=== PATIENT | male | born 1945 | race Caucasian/White ===

== ENCOUNTER → 2016-05-10 | Outpatient (CLI) | payer OTHER ==
[2016-05-10 09:30] LABS: Appearance,Urine Clear (Clear); Bilirubin,Urine Negative (Negative); Glucose,Urine (UA) Negative (Negative); Ketones,Urine Negative (Negative); Leukocyte Esterase,Urine Negative (Negative); Nitrite,Urine Negative (Negative); Protein,Urine Negative (Negative); Specific Gravity,Urine 1.013 (1.001-1.035); UA Billing (MACRO vs. MICRO) CHEM; Urobilinogen,Urine <2.0 mg/dL (<2.0)
[2016-05-10 09:31] LABS: Basophils # (A) 0.1 k/uL (0-0.2); Basophils % (A) 1 %; CH 30.3; CHCM 33.5; Eosinophils # (A) 0.1 k/uL (0-0.7); Eosinophils % (A) 2 %; HCT 40.4 % (39.0-53.0); HDW 2.62; Luc # (Auto) 0.13; Luc % (Auto) 2; Lymphocytes # (A) 1.6 k/uL (1.0-4.8); Lymphocytes % (A) 23 %; MCH 29.3 pg (25.0-35.0); MCHC 32.2 g/dL (31.0-37.0); MCV 90.9 fL (80.0-100.0); Mean Platelet Volume 7.6; Monocytes # (A) 0.4 k/uL (0-1.0); Monocytes % (A) 6 %; Neutrophils # (A) 4.6 k/uL (1.3-7.7); Neutrophils % (A) 66 %; RBC 4.44 m/uL (4.30-5.90); RDW 13.1 % (11.5-15.5)
[2016-05-10 10:51] LABS: Anion Gap 9 mmol/L; Blood Urea Nitrogen 16 mg/dL (9-20); Calcium 9.5 mg/dL (8.4-10.2); Carbon Dioxide 28 mmol/L (22-30); Chloride 106 mmol/L (98-107); Glucose 96 mg/dL (74-99); Iron 105 ug/dL (49-181); Non-African American GFR(MDRD) 50 (>60 ml/min/1.73 sqM); Potassium 5.2 mmol/L (3.5-5.1); Sodium 143 mmol/L (137-145)
[2016-05-10 11:00] LABS: % Iron Saturation 32.4 % (20-50); Total Iron Binding Capacity 324 ug/dL (261-462)
== END | disposition home or self-care (01) ==
LOC: LABWHC1 08:50
PROVIDERS: ATTEND Nurse Practitioner Family
DX: N18.3 Chronic kidney disease, stage 3 (moderate) (principal); N25.81 Secondary hyperparathyroidism of renal origin; D50.9 Iron deficiency anemia, unspecified; N39.0 Urinary tract infection, site not specified
CPT/HCPCS: 36415; 80048; 81003; 82306; 82728; 83540; 83550; 83970; 85025

== ENCOUNTER → 2016-11-09 | Outpatient (CLI) | payer OTHER ==
[2016-11-09 08:35] LABS: Basophils % (A) 1 %; CH 31.4; Eosinophils # (A) 0.2 k/uL (0-0.7); Eosinophils % (A) 2 %; HCT 39.9 % (39.0-53.0); HGB 13.4 gm/dL (13.0-17.5); Luc % (Auto) 3; Lymphocytes % (A) 29 %; MCH 31.1 pg (25.0-35.0); MCHC 33.6 g/dL (31.0-37.0); MCV 92.7 fL (80.0-100.0); Mean Platelet Volume 7.3; Monocytes # (A) 0.5 k/uL (0-1.0); Monocytes % (A) 6 %; Neutrophils # (A) 4.2 k/uL (1.3-7.7); Neutrophils % (A) 59 %; RBC 4.31 m/uL (4.30-5.90); RDW 14.3 % (11.5-15.5); WBC 7.1 k/uL (3.8-10.6); WBC (Perox) 7.15
[2016-11-09 08:36] LABS: Appearance,Urine Clear (Clear); Bilirubin,Urine Negative (Negative); Glucose,Urine (UA) Negative (Negative); Ketones,Urine Negative (Negative); Leukocyte Esterase,Urine Negative (Negative); Nitrite,Urine Negative (Negative); Protein,Urine Negative (Negative); Specific Gravity,Urine 1.018 (1.001-1.035); UA Billing (MACRO vs. MICRO) CHEM; Urobilinogen,Urine <2.0 mg/dL (<2.0)
[2016-11-09 12:23] LABS: Anion Gap 12 mmol/L; Blood Urea Nitrogen 22 mg/dL (9-20); Calcium 9.4 mg/dL (8.4-10.2); Carbon Dioxide 26 mmol/L (22-30); Chloride 104 mmol/L (98-107); Glucose 95 mg/dL (74-99); Iron 61 ug/dL (49-181); Non-African American GFR(MDRD) 50 (>60 ml/min/1.73 sqM); Potassium 4.5 mmol/L (3.5-5.1); Sodium 142 mmol/L (137-145)
[2016-11-09 12:33] LABS: Total Iron Binding Capacity 325 ug/dL (261-462)
== END | disposition home or self-care (01) ==
LOC: LABWHC1 08:12
PROVIDERS: ATTEND Nurse Practitioner Family
DX: N18.3 Chronic kidney disease, stage 3 (moderate) (principal); D50.9 Iron deficiency anemia, unspecified; N25.81 Secondary hyperparathyroidism of renal origin; N39.0 Urinary tract infection, site not specified
CPT/HCPCS: 36415; 80048; 81003; 82306; 82728; 83540; 83550; 83970; 85025

== ENCOUNTER → 2016-11-26 | Outpatient (CLI) | payer OTHER ==
--- NOTE | 2016-11-27 07:09 | US ---
EXAMINATION TYPE: US kidneys/renal and bladder DATE OF EXAM: 11/26/2016 COMPARISON: 06/29/2014 CLINICAL HISTORY: N18.3 chronic disease stage 3. EXAM MEASUREMENTS: Right Kidney: 13.6 x 6.2 x 5.1 cm Left Kidney: nephrectomy Right Kidney: Compensatory hypertrophy. Preserved cortical medullary differentiation. No evidence of nephrolithiasis or hydronephrosis. No renal masses are seen. Left Kidney: nephrectomy Bladder: patient emptied bladder before test The urinary bladder is anechoic but incompletely distended. IMPRESSION: Compensatory hypertrophy of the otherwise unremarkable appearing right kidney. Surgical absence of th e left kidney.
== END | disposition home or self-care (01) ==
LOC: RADUSWWP 16:04
PROVIDERS: ATTEND Internal Medicine Nephrology
DX: N28.81 Hypertrophy of kidney (principal); Z90.5 Acquired absence of kidney; N18.3 Chronic kidney disease, stage 3 (moderate)
CPT/HCPCS: 76770

== ENCOUNTER → 2017-08-08 | Outpatient (CLI) | payer OTHER ==
[2017-08-08 09:16] LABS: Basophils # (A) 0.1 k/uL (0-0.2); Basophils % (A) 1 %; Eosinophils # (A) 0.1 k/uL (0-0.7); Eosinophils % (A) 2 %; HGB 13.1 gm/dL (13.0-17.5); Lymphocytes # (A) 1.8 k/uL (1.0-4.8); Lymphocytes % (A) 24 %; MCH 29.6 pg (25.0-35.0); MCHC 33.7 g/dL (31.0-37.0); MCV 87.6 fL (80.0-100.0); Mean Platelet Volume 6.6; Monocytes # (A) 0.4 k/uL (0-1.0); Monocytes % (A) 6 %; Neutrophils # (A) 4.7 k/uL (1.3-7.7); Neutrophils % (A) 65 %; Platelet Count 286 k/uL (150-450); RBC 4.45 m/uL (4.30-5.90); WBC 7.2 k/uL (3.8-10.6)
[2017-08-08 09:27] LABS: Calcium 9.2 mg/dL (8.4-10.2); Phosphorus 3.2 mg/dL (2.5-4.5); Potassium 4.8 mmol/L (3.5-5.1); Uric Acid 4.7 mg/dL (3.5-8.5)
[2017-08-08 09:32] LABS: Appearance,Urine Clear (Clear); Bilirubin,Urine Negative (Negative); Blood,Urine Negative (Negative); Color,Urine Yellow; Glucose,Urine (UA) Negative (Negative); Ketones,Urine Negative (Negative); Leukocyte Esterase,Urine Negative (Negative); Nitrite,Urine Negative (Negative); PH, Urine 5.5 (5.0-8.0); Protein,Urine Trace (Negative); Specific Gravity,Urine 1.021 (1.001-1.035); Urobilinogen,Urine <2.0 mg/dL (<2.0)
[2017-08-08 15:15] LABS: Parathyroid Hormone Intact 65.3 pg/mL (14.0-72.0)
[2017-08-08 16:26] LABS: Iron Saturation 28.29 (15.00-50.00)
[2017-08-08 16:34] LABS: Vitamin D 25 Hydroxy 39.6 ng/mL (30.0-100.0)
== END | disposition home or self-care (01) ==
LOC: LABWHC1 08:38
PROVIDERS: ATTEND Nurse Practitioner Family
DX: D50.9 Iron deficiency anemia, unspecified (principal); N25.81 Secondary hyperparathyroidism of renal origin; N18.3 Chronic kidney disease, stage 3 (moderate); N39.0 Urinary tract infection, site not specified; M10.9 Gout, unspecified
CPT/HCPCS: 36415; 80048; 81003; 82306; 82728; 83540; 83550; 83735; 83970; 84100; 84550; 85025

== ENCOUNTER → 2017-08-22 | Outpatient (CLI) | payer OTHER ==
--- NOTE | 2017-08-22 15:56 | US ---
EXAMINATION TYPE: US kidneys/renal and bladder DATE OF EXAM: 08/22/2017 COMPARISON: US 11/24/[address] CLINICAL HISTORY: N18.3 CKD. CKD, left nephrectomy in 2013 EXAM MEASUREMENTS: Right Kidney: 13.6 x 5.4 x 6.1 cm Right Kidney: Compensatory hypertrophy. Anechoic small cyst medially= 1.6 x 1.4 x 1.7 cm Left Kidney: Surgically absent Bladder: wnl Bilateral Jets seen: Only right jet visualized due to surgically absent left kidney No nephrolithiasis is seen. No masses are identified. The urinary bladder is anechoic. IMPRESSION: Compensatory hypertrophy of the right kidney with 1.7 cm anechoic renal cysts. No evidence of hydrone phrosis or nephrolithiasis. Surgical absence of the left kidney.
== END | disposition home or self-care (01) ==
LOC: RADUSWWP 14:45
PROVIDERS: ATTEND Internal Medicine Nephrology
DX: N28.81 Hypertrophy of kidney (principal); N28.1 Cyst of kidney, acquired; N18.3 Chronic kidney disease, stage 3 (moderate)
CPT/HCPCS: 76770

== ENCOUNTER → 2017-10-17 | Outpatient (CLI) | payer OTHER ==
--- NOTE | 2017-10-17 09:00 | US ---
EXAMINATION TYPE: US prostate transrectal DATE OF EXAM: 10/17/2017 COMPARISON: NONE CLINICAL HISTORY: R97.20 Elevated PSA. Elevated PSA This examination was performed using the transrectal probe. EXAM MEASUREMENTS: Gland Size: 5.6 x 2.6 x 5.1cm Volume: 39.0cm Predicted PSA: 4.68 Actual PSA (if available):not available Heterogeneous gland. Central zone calcifications. Hypoechoic area appearing to be within the peripher al zone zone is overall similar to the prior exam measuring 0.6 x 0.6 x 0.5cm IMPRESSION: Solitary 6 mm hypoechoic lesion within the left prostatic peripheral zone towards the apex appears si milar to the prior exam. For further evaluation. Considerations could be given for prostate MRI, ultr asound-guided biopsy or surveillance. Other changes of benign prostatic hyperplasia are noted.
[2017-10-17 09:08] LABS: HCT 39.4 % (39.0-53.0); HGB 13.3 gm/dL (13.0-17.5); MCH 30.5 pg (25.0-35.0); MCHC 33.8 g/dL (31.0-37.0); MCV 90.1 fL (80.0-100.0); Platelet Count 301 k/uL (150-450); RBC 4.38 m/uL (4.30-5.90); RDW 13.3 % (11.5-15.5); WBC 7.3 k/uL (3.8-10.6)
[2017-10-17 09:21] LABS: Albumin 4.2 g/dL (3.5-5.0); Bilirubin, Delta 0.2 mg/dL (0.0-0.2); Bilirubin,Unconjugated 0.4 mg/dL (0.0-1.1); Calcium 9.4 mg/dL (8.4-10.2); Potassium 4.8 mmol/L (3.5-5.1); Total Bilirubin 0.6 mg/dL (0.2-1.3); Total Protein 6.9 g/dL (6.3-8.2)
--- NOTE | 2017-10-17 09:24 | XR ---
EXAMINATION TYPE: XR chest 2V DATE OF EXAM: 10/17/2017 COMPARISON: 03/21/2017 HISTORY: Evaluate pulmonary nodule seen at the left lung base. History renal cell carcinoma. TECHNIQUE: Frontal and lateral views of the chest are obtained. FINDINGS: There is no focal air space opacity, pleural effusion, or pneumothorax seen. The previousl y seen nodular density at the left lung base represents a nipple shadow as nipple markers are placed. No radiographic nodule is identified although spatial resolution is improved with CT and evaluation of subcentimeter pulmonary nodules is better on CT. The cardiac silhouette size is within normal limi ts. The osseous structures are intact. Slight right hemidiaphragm elevation is unchanged from the p rior. IMPRESSION: No acute cardiopulmonary process. The previously seen left basilar nodular density repre sents a nipple shadow with nipple markers placed on this examination.
== END | disposition home or self-care (01) ==
LOC: RADUSMAIN 07:47
PROVIDERS: ATTEND Urology
DX: C64.2 Malignant neoplasm of left kidney, except renal pelvis (principal); N40.0 Benign prostatic hyperplasia without lower urinary tract symptoms; N42.89 Other specified disorders of prostate; R97.20 Elevated prostate specific antigen [PSA]
CPT/HCPCS: 36415; 71046; 76872; 80048; 80076; 84153; 84154; 85027

== ENCOUNTER → 2017-10-21 | Outpatient (CLI) | payer OTHER | END | disposition home or self-care (01) | LOC: LABWHC1 16:51 | PROVIDERS: ATTEND Family Medicine | DX: M79.604 Pain in right leg (principal) | CPT/HCPCS: 36415; 85379 ==

== ENCOUNTER → 2018-05-09 | Outpatient (CLI) | payer OTHER ==
[2018-05-09 09:41] LABS: Basophils % (A) 1 %; Eosinophils # (A) 0.1 k/uL (0-0.7); Eosinophils % (A) 2 %; HCT 40.1 % (39.0-53.0); HGB 13.1 gm/dL (13.0-17.5); Lymphocytes # (A) 0.7 k/uL (1.0-4.8); Lymphocytes % (A) 16 %; MCH 29.8 pg (25.0-35.0); MCHC 32.6 g/dL (31.0-37.0); MCV 91.3 fL (80.0-100.0); Mean Platelet Volume 7.5; Monocytes # (A) 0.3 k/uL (0-1.0); Monocytes % (A) 7 %; Neutrophils # (A) 3.1 k/uL (1.3-7.7); Neutrophils % (A) 72 %; Platelet Count 246 k/uL (150-450); RBC 4.39 m/uL (4.30-5.90); RDW 13.2 % (11.5-15.5); WBC 4.3 k/uL (3.8-10.6)
[2018-05-09 10:00] LABS: Appearance,Urine Clear (Clear); Bilirubin,Urine Negative (Negative); Blood,Urine Negative (Negative); Color,Urine Yellow; Glucose,Urine (UA) Negative (Negative); Ketones,Urine Negative (Negative); Leukocyte Esterase,Urine Negative (Negative); Nitrite,Urine Negative (Negative); Protein,Urine Trace (Negative); Specific Gravity,Urine 1.021 (1.001-1.035); Urobilinogen,Urine <2.0 mg/dL (<2.0)
[2018-05-09 16:18] LABS: Parathyroid Hormone Intact 57.6 pg/mL (14.0-72.0)
[2018-05-09 16:32] LABS: Iron Saturation 26.44 (15.00-50.00)
[2018-05-09 16:38] LABS: Anion Gap 7.4 mmol/L (4.00-12.00); Calcium 9.4 mg/dL (8.7-10.3); Carbon Dioxide 28.6 mmol/L (21.6-31.8); Magnesium 1.9 mg/dL (1.5-2.4); Phosphorus 3.2 mg/dL (2.4-5.1); Potassium 4.8 mmol/L (3.5-5.5); Uric Acid 4.8 mg/dL (3.7-8.7)
[2018-05-09 16:39] LABS: Vitamin D 25 Hydroxy 39.6 ng/mL (30.0-100.0)
[2018-05-09 17:04] LABS: Total Protein,Urine Random 21.1 mg/dL (0.0-13.5)
[2018-05-09 17:05] LABS: Creatinine,Urine Random 181.2 mg/dL
[2018-05-11 14:56] LABS: C-ANCA <1:20 Titer (<1:20); P-ANCA <1:20 Titer (<1:20)
== END | disposition home or self-care (01) ==
LOC: LABWHC1 09:11
PROVIDERS: ATTEND Nurse Practitioner Family
DX: N39.0 Urinary tract infection, site not specified (principal); D63.1 Anemia in chronic kidney disease; N18.3 Chronic kidney disease, stage 3 (moderate); E55.9 Vitamin D deficiency, unspecified; D50.9 Iron deficiency anemia, unspecified; N25.81 Secondary hyperparathyroidism of renal origin; R80.9 Proteinuria, unspecified; M10.9 Gout, unspecified
CPT/HCPCS: 36415; 80048; 81003; 82306; 82570; 82728; 83516; 83540; 83550; 83735; 83883; 83970; 84100; 84156; 84166; 84550; 85025; 86038; 86160; 86162; 86225; 86255; 86334

== ENCOUNTER → 2018-06-02 | Outpatient (CLI) | payer OTHER ==
--- NOTE | 2018-06-03 07:49 | US ---
EXAMINATION TYPE: US kidneys/renal and bladder DATE OF EXAM: 06/02/2018 COMPARISON: 08/22/2017 CLINICAL HISTORY: N18.3 chronic kidney disease stage 3. CKD, Hx of left renal cancer with surgical re moval x 1 year ago. No pain. EXAM MEASUREMENTS: Right Kidney: 13.1 x 5.6 x 4.7 cm Right Kidney: Medial anechoic lesion seen at hilum - 1.8 x 1.4 cm Left Kidney: History of left nephrectomy Bladder: wnl, distended Right jet seen IMPRESSION: Post left nephrectomy.
== END | disposition home or self-care (01) ==
LOC: RADUSWWP 15:58
PROVIDERS: ATTEND Internal Medicine Nephrology
DX: N18.3 Chronic kidney disease, stage 3 (moderate) (principal); Z90.5 Acquired absence of kidney
CPT/HCPCS: 76770

== ENCOUNTER → 2018-06-27 | Outpatient (CLI) | payer OTHER | END | disposition home or self-care (01) | LOC: LABWHC1 08:43 | PROVIDERS: ATTEND Radiology Radiation Oncology | DX: C61 Malignant neoplasm of prostate (principal) | CPT/HCPCS: 36415; 84153 ==

== ENCOUNTER → 2018-09-03 | Outpatient (CLI) | payer OTHER ==
[2018-09-03 15:54] LABS: HCT 37.9 % (39.0-53.0); HGB 12.9 gm/dL (13.0-17.5); MCH 30.3 pg (25.0-35.0); MCV 89.2 fL (80.0-100.0); Mean Platelet Volume 7.5; Platelet Count 237 k/uL (150-450); RBC 4.25 m/uL (4.30-5.90); RDW 13.5 % (11.5-15.5); WBC 7.4 k/uL (3.8-10.6)
[2018-09-03 16:09] LABS: Calcium 9.2 mg/dL (8.4-10.2); Potassium 4.6 mmol/L (3.5-5.1)
--- NOTE | 2018-09-04 06:30 | XR ---
EXAMINATION TYPE: XR chest 2V DATE OF EXAM: 09/03/2018 COMPARISON: Chest x-ray October 17, 2017. HISTORY: Kidney cancer. TECHNIQUE: Frontal and lateral views of the chest are obtained. FINDINGS: Some eventration of right hemidiaphragm is redemonstrated. There is no focal air space opa city, pleural effusion, or pneumothorax seen. The cardiac silhouette size is within normal limits. The osseous structures are intact. IMPRESSION: No acute cardiopulmonary process. No significant change from prior.
--- NOTE | 2018-09-04 08:36 | CT ---
EXAMINATION TYPE: CT abdomen pelvis w con DATE OF EXAM: 09/03/2018 COMPARISON: Ultrasound 06/02/2018 INDICATION: Follow up for kidney CA DLP: 1128 mGycm, Automated exposure control for dose reduction was used. CONTRAST: 80 mL of Isovue 300. Study performed with Oral Contrast TECHNIQUE: Axial images were obtained from above the diaphragm to the pubic rami in the axial plane a t 5 mm thick sections. Reconstructed images are reviewed on the computer in the coronal plane. FINDINGS: Limited CT sections are obtained the lung bases. The lung bases are clear. CT ABDOMEN: Liver: Small cyst may be in the superior anterior left lobe liver. Spleen: Normal Pancreas: Normal Adrenal glands: There is slight prominence of the left adrenal gland measuring 1.1 cm. Right adrenal gland appears normal. Gallbladder: Normal Kidneys: Left kidney is absent. The right kidney appears normal without masses or hydronephrosis. Tin y cortical renal cysts on the mid posterior portion. No renal stones are identified on this contrast study. No abnormal renal adenopathy at the level of the renal arteries is evident. Aorta: Vascular calcification is within the aorta. Inferior vena cava: Normal. CT PELVIS: Loops of bowel within the abdomen and pelvis are normal. There are loops of bowel which are incom pletely distended or lack oral contrast limiting their evaluation. A few scattered diverticuli within the sigmoid colon. Fecal debris is within redundant sigmoid colon. Appendix: Normal as visualized. This is small and somewhat difficult to identify. No suspicious infla mmatory changes are evident. Urinary bladder: Normal Genitourinary structures: Prostate has mild prominence Osseous structures: No suspicious lytic or sclerotic lesions. Some facet hypertrophy is present withi n the lower lumbar spine. IMPRESSIONS: 1. No suspicious recurrent masses or changes to suggest metastatic disease are evident.
== END | disposition home or self-care (01) ==
LOC: RADCTMAIN 15:27
PROVIDERS: ATTEND Urology
DX: C64.2 Malignant neoplasm of left kidney, except renal pelvis (principal); C61 Malignant neoplasm of prostate
CPT/HCPCS: 84153; 80048; 85027; 71046; 74177; 36415; Q9967 ×2

== ENCOUNTER → 2018-12-26 | Outpatient (CLI) | payer OTHER | END | disposition home or self-care (01) | LOC: LABWHC1 08:16 | PROVIDERS: ATTEND Radiology Radiation Oncology | DX: C61 Malignant neoplasm of prostate (principal) | CPT/HCPCS: 36415; 84153 ==

== ENCOUNTER → 2019-02-08 | Outpatient (CLI) | payer OTHER ==
[2019-02-08 15:00] LABS: Basophils % (A) 0 %; Eosinophils # (A) 0.1 k/uL (0-0.7); Eosinophils % (A) 2 %; HCT 37.4 % (39.0-53.0); HGB 12.7 gm/dL (13.0-17.5); Lymphocytes # (A) 1.8 k/uL (1.0-4.8); Lymphocytes % (A) 25 %; MCHC 34.1 g/dL (31.0-37.0); MCV 90.8 fL (80.0-100.0); Mean Platelet Volume 6.2; Monocytes # (A) 0.5 k/uL (0-1.0); Monocytes % (A) 7 %; Neutrophils # (A) 4.5 k/uL (1.3-7.7); Neutrophils % (A) 63 %; Platelet Count 248 k/uL (150-450); RBC 4.12 m/uL (4.30-5.90); RDW 12.8 % (11.5-15.5); WBC 7.1 k/uL (3.8-10.6)
[2019-02-08 15:11] LABS: Appearance,Urine Clear (Clear); Bilirubin,Urine Negative (Negative); Blood,Urine Negative (Negative); Color,Urine Yellow; Glucose,Urine (UA) Negative (Negative); Ketones,Urine Negative (Negative); Leukocyte Esterase,Urine Negative (Negative); Nitrite,Urine Negative (Negative); Protein,Urine Negative (Negative); Specific Gravity,Urine 1.025 (1.001-1.035); Urobilinogen,Urine <2.0 mg/dL (<2.0)
[2019-02-08 19:05] LABS: African American GFR (CKD) 57.8 (60.0-200.0); BUN/Creat Ratio 16.43 Ratio (12.00-20.00); Calcium 8.9 mg/dL (8.7-10.3); Magnesium 1.9 mg/dL (1.5-2.4); Phosphorus 3.7 mg/dL (2.4-5.1); Potassium 4.5 mmol/L (3.5-5.5); Uric Acid 5.4 mg/dL (3.7-8.7)
[2019-02-08 19:14] LABS: Ferritin 214.4 ng/mL (22.0-322.0)
== END | disposition home or self-care (01) ==
LOC: LABWHC1 14:09
PROVIDERS: ATTEND Nurse Practitioner Family
DX: M10.9 Gout, unspecified (principal); N39.0 Urinary tract infection, site not specified; N18.3 Chronic kidney disease, stage 3 (moderate); N25.81 Secondary hyperparathyroidism of renal origin
CPT/HCPCS: 36415; 80048; 81003; 82306; 82728; 83540; 83550; 83735; 83970; 84100; 84550; 85025

== ENCOUNTER → 2019-03-03 | Outpatient (CLI) | payer OTHER ==
--- NOTE | 2019-03-04 07:44 | US ---
EXAMINATION TYPE: US kidneys/renal and bladder DATE OF EXAM: 03/03/2019 COMPARISON: CT abdomen and pelvis September 03, 2018 CLINICAL HISTORY: N18.3 Chronic kidney disease Stage III. LK removed. No pain. EXAM MEASUREMENTS: Right Kidney: 12.2 x 5.7 x 5.6 cm Right Kidney: Cystic appearing lesion seen in medial renal sinus - 1.6 x 1.7 x 1.5 cm Left Kidney: Surgically absent Bladder: Not greatly distended, anechoic Bilateral Jets not seen There is no evidence for right-sided hydronephrosis at this point in time. No nephrolithiasis is see n. Central 1.7 cm thin-walled simple cyst corresponds to coronal image 53. Focal scarring on CT poste riorly upper to mid pole level axial image 30 less well seen on ultrasound. The urinary bladder is n ot greatly distended. Bilateral ureteral jets are not seen. Left kidney surgically absent at left re nal fossa IMPRESSION: Absent left kidney. No hydronephrosis in the right kidney.
== END | disposition home or self-care (01) ==
LOC: RADUSWWP 16:01
PROVIDERS: ATTEND Internal Medicine Nephrology
DX: N18.3 Chronic kidney disease, stage 3 (moderate) (principal); Z90.5 Acquired absence of kidney
CPT/HCPCS: 76770

== ENCOUNTER → 2019-05-29 | Outpatient (CLI) | payer OTHER | LOC: LABWHC1 08:25 | PROVIDERS: ATTEND Urology | DX: C61 Malignant neoplasm of prostate (principal) | CPT/HCPCS: 36415; 84153 ==

== ENCOUNTER → 2019-09-09 | Outpatient (CLI) | payer BC ==
--- NOTE | 2019-09-09 15:15 | XR ---
EXAMINATION TYPE: XR chest 2V DATE OF EXAM: 09/09/2019 COMPARISON: 09/03/2018 HISTORY: Renal cell carcinoma TECHNIQUE: Frontal and lateral views of the chest are obtained. FINDINGS: Faint left basilar previously questioned pulmonary nodule does relate to a nipple shadow a nd is stable from the prior of 10/17/2017. There is no focal air space opacity, pleural effusion, or p neumothorax seen. The cardiac silhouette size is within normal limits. The osseous structures are intact. Mild multilevel degenerative changes of the spine. IMPRESSION: No acute cardiopulmonary process.
[2019-09-10 00:44] LABS: African American GFR (CKD) 57.8 (60.0-200.0); Anion Gap 9.3 mmol/L (4.00-12.00); Calcium 9.3 mg/dL (8.7-10.3); Carbon Dioxide 24.7 mmol/L (21.6-31.8); Non-African American GFR(CKD) 49.8 (60.0-200.0); Potassium 4.4 mmol/L (3.5-5.5)
== END | disposition home or self-care (01) ==
LOC: LABWHC1 14:37
PROVIDERS: ATTEND Urology
DX: C64.2 Malignant neoplasm of left kidney, except renal pelvis (principal); C61 Malignant neoplasm of prostate
CPT/HCPCS: 36415; 71046; 80048; 84153

== ENCOUNTER → 2019-12-16 | Outpatient (CLI) | payer BC ==
[2019-12-16 16:22] LABS: Basophils # (A) 0.1 k/uL (0-0.2); Basophils % (A) 1 %; Eosinophils # (A) 0.2 k/uL (0-0.7); Eosinophils % (A) 2 %; HCT 38.3 % (39.0-53.0); HGB 12.6 gm/dL (13.0-17.5); Lymphocytes # (A) 1.8 k/uL (1.0-4.8); Lymphocytes % (A) 28 %; MCH 29.7 pg (25.0-35.0); MCHC 32.9 g/dL (31.0-37.0); MCV 90.4 fL (80.0-100.0); Monocytes # (A) 0.5 k/uL (0-1.0); Monocytes % (A) 7 %; Neutrophils # (A) 3.8 k/uL (1.3-7.7); Neutrophils % (A) 59 %; Platelet Count 217 k/uL (150-450); RBC 4.24 m/uL (4.30-5.90); RDW 13.1 % (11.5-15.5); WBC 6.4 k/uL (3.8-10.6)
[2019-12-17 01:27] LABS: ALT 18 U/L (10-49); AST 17 U/L (14-35); African American GFR (CKD) 62.7 (60.0-200.0); Albumin/Globulin Ratio 1.95 (1.60-3.17); Alkaline Phosphatase 70 U/L (41-126); BUN/Creat Ratio 14.62 Ratio (12.00-20.00); Bilirubin, Conjugated <0.20 mg/dL (0.20-0.40); Calcium 9.3 mg/dL (8.7-10.3); Carbon Dioxide 26.9 mmol/L (21.6-31.8); Chloride 103 mmol/L (96-109); Globulin 2.2 g/dL (1.6-3.3); Glucose 83 mg/dL (70-110); Non-African American GFR(CKD) 54.1 (60.0-200.0); Potassium 4.6 mmol/L (3.5-5.5); Sodium 138 mmol/L (135-145); Total Bilirubin 0.5 mg/dL (0.3-1.2); Total Protein 6.5 g/dL (6.2-8.2)
[2019-12-17 01:35] LABS: Prostate Specific Antigen 0.6 ng/mL (0.0-6.5)
== END | disposition home or self-care (01) ==
LOC: LABWHC1 15:16
PROVIDERS: ATTEND Urology
DX: C61 Malignant neoplasm of prostate (principal)
CPT/HCPCS: 36415; 80048; 80076; 84153; 85025

== ENCOUNTER → 2020-04-04 | Outpatient (CLI) | payer MEDICARE, BC ==
[2020-04-04 08:32] LABS: Basophils # (A) 0.1 k/uL (0-0.2); Basophils % (A) 1 %; Eosinophils # (A) 0.2 k/uL (0-0.7); Eosinophils % (A) 3 %; HCT 38.8 % (39.0-53.0); HGB 13.2 gm/dL (13.0-17.5); Lymphocytes # (A) 1.6 k/uL (1.0-4.8); Lymphocytes % (A) 22 %; MCV 91.2 fL (80.0-100.0); Mean Platelet Volume 6.8; Monocytes # (A) 0.5 k/uL (0-1.0); Monocytes % (A) 7 %; Neutrophils # (A) 4.9 k/uL (1.3-7.7); Neutrophils % (A) 66 %; Platelet Count 231 k/uL (150-450); RBC 4.25 m/uL (4.30-5.90); WBC 7.4 k/uL (3.8-10.6)
[2020-04-04 10:45] LABS: African American GFR (CKD) 62.7 (60.0-200.0); Albumin 4.2 g/dL (3.80-4.90); Albumin/Globulin Ratio 2.1 (1.60-3.17); Anion Gap 1.5 mmol/L (4.00-12.00); BUN/Creat Ratio 13.85 Ratio (12.00-20.00); Bilirubin, Conjugated 0.2 mg/dL (0.20-0.40); Bilirubin,Unconjugated 0.2 mg/dL; Carbon Dioxide 34.5 mmol/L (21.6-31.8); Non-African American GFR(CKD) 54.1 (60.0-200.0); Potassium 5.1 mmol/L (3.5-5.5); Total Bilirubin 0.4 mg/dL (0.3-1.2); Total Protein 6.2 g/dL (6.2-8.2)
[2020-04-04 10:53] LABS: Prostate Specific Antigen 0.9 ng/mL (0.0-6.5)
== END | disposition home or self-care (01) ==
LOC: LABWHC1 07:12
PROVIDERS: ATTEND Urology
DX: C61 Malignant neoplasm of prostate (principal)
CPT/HCPCS: 36415; 80048; 80076; 84153; 85025

== ENCOUNTER → 2020-10-30 | Outpatient (CLI) | payer MEDICARE ==
[2020-10-30 07:51] LABS: HCT 36.2 % (39.0-53.0); HGB 12.2 gm/dL (13.0-17.5); MCH 31.2 pg (25.0-35.0); MCHC 33.7 g/dL (31.0-37.0); MCV 92.7 fL (80.0-100.0); Platelet Count 215 k/uL (150-450); RDW 13.1 % (11.5-15.5); WBC 5.8 k/uL (3.8-10.6)
--- NOTE | 2020-10-30 07:59 | XR ---
EXAMINATION TYPE: XR chest 2V DATE OF EXAM: 10/30/2020 COMPARISON: 09/09/2019 HISTORY: 75-year-old male C6 4.2, left kidney cancer TECHNIQUE: Frontal and lateral views FINDINGS: The cardiomediastinal silhouette, aorta, and pulmonary vasculature are within normal limits. Lungs an d pleural spaces are clear. IMPRESSION: No acute cardiopulmonary process.
--- NOTE | 2020-10-30 08:01 | US ---
EXAMINATION TYPE: US kidneys/renal and bladder DATE OF EXAM: 10/30/2020 COMPARISON: 03/03/2019 CLINICAL HISTORY: 75-year-old male C64.2 Left Kidney cancer. Left kidney removed 2013 due to CA EXAM MEASUREMENTS: Right Kidney: 13.1 x 5.9 x 5.2cm Left Kidney: surgically absent Post Void Residual Volume: 7.3 mL Right Kidney: parapelvic cyst noted mid pole =1.5 x 1.1 x 1.3cm. No hydronephrosis. Left kidney: Surgically absent. Bladder: patient not prepped, under distended bladder Bilateral Jets seen: right ureteral jet is visualized Normal Post Void Residual: yes IMPRESSION: 1. Status post left nephrectomy. 2. A benign 1.5 cm parapelvic cyst in the right kidney. No hydronephrosis. The right ureteral jet is visualized. 3. Underdistention of the bladder limits its evaluation. Postvoid bladder volume of 7 mL, increased, but falls within acceptable limits.
[2020-10-30 08:16] LABS: Albumin 3.7 g/dL (3.5-5.0); Bilirubin,Unconjugated 0.3 mg/dL (0.0-1.1); Magnesium 1.9 mg/dL (1.6-2.3); Phosphorus 4.1 mg/dL (2.5-4.5); Potassium 4.5 mmol/L (3.5-5.1); Total Bilirubin 0.3 mg/dL (0.2-1.3); Total Protein 6.2 g/dL (6.3-8.2)
[2020-10-30 15:23] LABS: Prostate Specific Antigen 0.4 ng/mL (0.0-6.5)
== END | disposition home or self-care (01) ==
LOC: RADUSWWP 06:57
PROVIDERS: ATTEND Urology
DX: C64.2 Malignant neoplasm of left kidney, except renal pelvis (principal); N28.1 Cyst of kidney, acquired; Z90.5 Acquired absence of kidney
CPT/HCPCS: 71046; 76770; 80048; 80076; 82306; 83735; 84100; 84153; 84403; 85027

== ENCOUNTER → 2021-11-15 | Outpatient (CLI) | payer MEDICARE ==
--- NOTE | 2021-11-15 10:05 | XR ---
EXAMINATION TYPE: XR chest 2V DATE OF EXAM: 11/15/2021 8:51 AM COMPARISON: Chest radiographs from 10/30/2020 TECHNIQUE: XR chest 2V Frontal and lateral views of the chest. CLINICAL INDICATION:Male, 76 years old with history of C642; FINDINGS: Lungs/Pleura: There is no evidence of pleural effusion, focal consolidation, or pneumothorax. Pulmonary vascularity: Unremarkable. Heart/mediastinum: Cardiomediastinal silhouette is unremarkable. Musculoskeletal: No acute osseous pathology. IMPRESSION: No acute cardiopulmonary disease/process.
--- NOTE | 2021-11-15 10:14 | US ---
EXAMINATION TYPE: US abdomen complete DATE OF EXAM: 11/15/2021 COMPARISON: CT 2019, US 2017 CLINICAL HISTORY: C64.2 CANCER LT KIDNEY. TECHNIQUE: Multiple sonographic images of the abdomen are obtained. FINDINGS: EXAM MEASUREMENTS: Liver Length: 15.7 cm Gallbladder Wall: 0.2 cm CBD: 0.4 cm Spleen: 8.8 cm Right Kidney: 13.0 x 5.4 x 5.8 cm Pancreas: obscured by overlying midline bowel gas Liver: left lobe obscured by overlying midline bowel gas there is increased echotexture. Gallbladder: wnl Evidence for sonographic Moore's sign: no CBD: wnl Spleen: visualized portions wnl, limited by overlying bowel gas Right Kidney: 1.5cm cystic area medial mid pole Left Kidney: surgically absent , no definitive recurrence identified. Upper IVC: wnl Abd Aorta: proximal portion 2.8cm, mid and distal portions measure wnl The liver demonstrate increased echotexture. The intrahepatic portion of the IVC and proximal abdomi nal aorta are within normal limits. There is no evidence of cholelithiasis. Common bile duct is unr emarkable. The visualized portions of the pancreas are homogenous. The spleen is unremarkable. Righ t kidney is free of hydronephrosis. No renal lesions are seen. IMPRESSION: 1. Overall limited exam with overlying bowel gas. 2. Left kidney is surgically absent without evidence for lymphadenopathy or recurrence. 3. Hepatic steatosis.
[2021-11-15 14:41] LABS: Basophils # (A) 0.05 X 10*3/uL (0.00-0.10); Basophils % (A) 0.7 %; Eosinophils % (A) 1.4 %; HCT 40.4 % (39.6-50.0); HGB 13.2 g/dL (13.0-17.0); Immature Grans, Automated 0.3 %; Lymphocytes # (A) 1.45 X 10*3/uL (0.90-5.00); Lymphocytes % (A) 20.5 %; MCHC 32.7 g/dL (32.0-37.0); MCV 91.8 fL (80.0-97.0); Mean Platelet Volume 9.3 fL (9.5-12.2); Monocytes # (A) 0.68 X 10*3/uL (0.20-1.00); Monocytes % (A) 9.6 %; NRBC Per 100 WBC 0 /100 WBCS (0.0-0.0); Neutrophils # (A) 4.79 X 10*3/uL (1.80-7.70); Neutrophils % (A) 67.5 %; Platelet Count 231 X 10*3/uL (140-440); WBC 7.09 X 10*3/uL (4.50-10.00)
[2021-11-15 15:35] LABS: ALT 25 U/L (10-49); AST 15 U/L (14-35); African American GFR (CKD) 61.9 (60.0-200.0); Albumin 4.4 g/dL (3.8-4.9); Albumin/Globulin Ratio 1.83 (1.60-3.17); Alkaline Phosphatase 90 U/L (41-126); BUN/Creat Ratio 12.08 Ratio (12.00-20.00); Bilirubin, Conjugated <0.20 mg/dL (0.20-0.40); Blood Urea Nitrogen 15.7 mg/dL (9.0-27.0); Calcium 9.5 mg/dL (8.7-10.3); Carbon Dioxide 28.2 mmol/L (20.0-27.5); Chloride 103 mmol/L (96-109); Globulin 2.4 g/dL (1.6-3.3); Glucose 113 mg/dL (70-110); Non-African American GFR(CKD) 53.4 (60.0-200.0); Potassium 5.7 mmol/L (3.5-5.5); Sodium 140 mmol/L (135-145); Total Protein 6.8 g/dL (6.2-8.2)
== END | disposition home or self-care (01) ==
LOC: RADUSWWP 08:05
PROVIDERS: ATTEND Urology
DX: C64.2 Malignant neoplasm of left kidney, except renal pelvis (principal); C61 Malignant neoplasm of prostate; K76.0 Fatty (change of) liver, not elsewhere classified
CPT/HCPCS: 71046; 76700; 80048; 80076; 84153; 85025

== ENCOUNTER → 2021-12-03 | Outpatient (CLI) | payer MEDICARE ==
[2021-12-03 11:00] LABS: Basophils # (A) 0.06 X 10*3/uL (0.00-0.10); Basophils % (A) 0.8 %; Eosinophils # (A) 0.13 X 10*3/uL (0.04-0.35); Eosinophils % (A) 1.8 %; HCT 41.9 % (39.6-50.0); HGB 13.5 g/dL (13.0-17.0); Immature Grans, Automated 0.6 %; Lymphocytes # (A) 1.44 X 10*3/uL (0.90-5.00); Lymphocytes % (A) 20.4 %; MCH 29.8 pg (27.0-32.0); MCHC 32.2 g/dL (32.0-37.0); MCV 92.5 fL (80.0-97.0); Mean Platelet Volume 9.5 fL (9.5-12.2); Monocytes # (A) 0.62 X 10*3/uL (0.20-1.00); Monocytes % (A) 8.8 %; NRBC Per 100 WBC 0 /100 WBCS (0.0-0.0); Neutrophils # (A) 4.77 X 10*3/uL (1.80-7.70); Neutrophils % (A) 67.6 %; Platelet Count 256 X 10*3/uL (140-440); RBC 4.53 X 10*6/uL (4.40-5.60); RDW 13.2 % (11.5-14.5); WBC 7.06 X 10*3/uL (4.50-10.00)
[2021-12-03 11:37] LABS: ALT 18 U/L (10-49); AST 13 U/L (14-35); African American GFR (CKD) 60.2 (60.0-200.0); Albumin 4.4 g/dL (3.8-4.9); Albumin/Globulin Ratio 1.91 (1.60-3.17); Alkaline Phosphatase 77 U/L (41-126); BUN/Creat Ratio 12.71 Ratio (12.00-20.00); Blood Urea Nitrogen 16.9 mg/dL (9.0-27.0); Calcium 9.5 mg/dL (8.7-10.3); Chloride 103 mmol/L (96-109); Chol/HDL Ratio 2.92 Ratio; Globulin 2.3 g/dL (1.6-3.3); Glucose 107 mg/dL (70-110); LDL Cholesterol,Calculated 56.2 mg/dL (0.0-131.0); Non-African American GFR(CKD) 51.9 (60.0-200.0); Potassium 5.3 mmol/L (3.5-5.5); Sodium 140 mmol/L (135-145); Total Protein 6.7 g/dL (6.2-8.2)
== END | disposition home or self-care (01) ==
LOC: LABWHC1 08:03
PROVIDERS: ATTEND Family Medicine
DX: Z00.00 Encounter for general adult medical examination without abnormal findings (principal); E55.9 Vitamin D deficiency, unspecified; E78.5 Hyperlipidemia, unspecified; R53.83 Other fatigue; Z13.220 Encounter for screening for lipoid disorders; C61 Malignant neoplasm of prostate; R97.20 Elevated prostate specific antigen [PSA]
CPT/HCPCS: 36415; 80053; 80061; 82306; 84153; 84439; 84443; 85025

== ENCOUNTER → 2022-12-03 | Outpatient (CLI) | payer MEDICARE ==
--- NOTE | 2022-12-03 08:45 | US ---
EXAMINATION TYPE: US abdomen complete DATE OF EXAM: 12/03/2022 COMPARISON: NONE CLINICAL INDICATION: Male, 77 years old with history of C64.2 MALIGNANT NEOPLASM OF LEFT KIDNEY, EXCE PT RE; Left kidney removed CA in 2013 TECHNIQUE: Multiple sonographic images of the abdomen are obtained. FINDINGS: EXAM MEASUREMENTS: Liver Length: 15.1 cm Gallbladder Wall: .2 cm CBD: .4 cm Spleen: 7.7 cm Right Kidney: 13.2 x 4.2 x 4.6 cm Left Kidney: Surgically absent [employer] O[employer]ATOR NOTES: Pancreas: Obscured by bowel gas Liver: Increased attenuation Gallbladder: No stones seen Evidence for sonographic Moore's sign: No CBD: wnl Spleen: wnl Right Kidney: Anechoic area mid pole 1.7 x 1.1 x 1. cm. Left Kidney: Surgically absent Upper IVC: wnl Abd Aorta: wnl The liver is homogenous. The intrahepatic portion of the IVC and proximal abdominal aorta are within normal limits. There is no evidence of cholelithiasis. Common bile duct is unremarkable. The visu alized portions of the pancreas are homogenous. The spleen is unremarkable. Kidneys are symmetric a nd free of hydronephrosis. IMPRESSION: Right renal cysts noted.
--- NOTE | 2022-12-03 09:35 | XR ---
EXAMINATION TYPE: XR chest 2V DATE OF EXAM: 12/03/2022 COMPARISON: 11/15/2021 HISTORY: Shortness of breath TECHNIQUE: Frontal and lateral views of the chest are obtained. FINDINGS: Scattered senescent parenchymal changes noted. Hyperinflation compatible with COPD. No evidence for infiltrate. No evidence for atelectasis. Heart size is stable. Mediastinal structures are stable and grossly unremarkable. No evidence for hilar prominence. Degenerative changes dorsal spine. IMPRESSION: 1. No evidence for acute pulmonary disease.
== END | disposition home or self-care (01) ==
LOC: RADUSWWP 08:11
PROVIDERS: ATTEND Urology
DX: C64.2 Malignant neoplasm of left kidney, except renal pelvis (principal); C61 Malignant neoplasm of prostate; N28.1 Cyst of kidney, acquired; Z85.528 Personal history of other malignant neoplasm of kidney
CPT/HCPCS: 71046; 76700; 84153

== ENCOUNTER → 2023-02-06 | Outpatient (CLI) | payer MEDICARE | END | disposition home or self-care (01) | LOC: LABWHC1 08:39 | PROVIDERS: ATTEND Family Medicine | DX: E03.9 Hypothyroidism, unspecified (principal) | CPT/HCPCS: 36415; 84439; 84443; 84481 ==

== ENCOUNTER → 2023-04-30 | Outpatient (CLI) | payer MEDICARE ==
[2023-04-30 15:43] LABS: Basophils # (A) 0.06 X 10*3/uL (0.00-0.10); Basophils % (A) 0.8 %; Eosinophils # (A) 0.11 X 10*3/uL (0.04-0.35); Eosinophils % (A) 1.5 %; HCT 40.7 % (39.6-50.0); HGB 13.2 g/dL (13.0-17.0); Lymphocytes # (A) 1.94 X 10*3/uL (0.90-5.00); Lymphocytes % (A) 26.7 %; MCH 30.1 pg (27.0-32.0); MCHC 32.4 g/dL (32.0-37.0); MCV 92.7 FL (80.0-97.0); Mean Platelet Volume 9.2 FL (9.5-12.2); Monocytes # (A) 0.63 X 10*3/uL (0.20-1.00); Monocytes % (A) 8.7 %; NRBC Per 100 WBC 0 X 10*3/uL (0.00-0.01); Neutrophils # (A) 4.49 X 10*3/uL (1.80-7.70); Neutrophils % (A) 61.9 %; Platelet Count 250 X 10*3/uL (140-440); RBC 4.39 X 10*6/uL (4.40-5.60); RDW 12.5 % (11.5-14.5); WBC 7.26 X 10*3/uL (4.50-10.00)
== END | disposition home or self-care (01) ==
LOC: LABPAT 08:40
PROVIDERS: ATTEND Surgery
DX: Z01.812 Encounter for preprocedural laboratory examination (principal); K40.20 Bilateral inguinal hernia, without obstruction or gangrene, not specified as recurrent; F17.200 Nicotine dependence, unspecified, uncomplicated; D64.9 Anemia, unspecified; R00.1 Bradycardia, unspecified
CPT/HCPCS: 36415; 85025; 86850; 86900; 86901; 93005

== ENCOUNTER 2023-05-09 06:38 | Day surgery (SDC) | payer MEDICARE ==
[~2023-05-09 06:38] MED LIST: ACETAMINOPHEN TAB 500 MG TAB PO PRN; DEXAMETHASONE SOD PHOSPHATE 4 MG/ML 1 ML VIAL IV ONE; HEPARIN SODIUM,PORCINE 5,000 UNIT/ML 1 ML VIAL SQ PRN; LACTATED RINGERS 1,000 ML IV SCH; LIDOCAINE 1% (10MG/ML) FOR IV START INTRADERMA PRN; ONDANSETRON 4 MG/2 ML VIAL IVP ONE
[2023-05-09] MEDS ORDERED: HYDROmorphone 0.5 MG/0.5 ML SYRINGE IVP PRN (07:00)
[2023-05-09] MEDS ORDERED: MIDAZOLAM 2 MG/2 ML VIAL IV PRN (07:00)
--- NOTE | 2023-05-09 07:30 | P.GSHP ---
History of Present Illness H&P Date: 05/09/23 Chief Complaint: Bilateral inguinal hernia 77-year-old male here for hernia repair. He has had a left groin bulge for the last 2 years or so. Increasing in size. Was unaware of the right-sided hernia until recent exams. Mild soreness on left. Past Medical History Past Medical History: Cancer, Hyperlipidemia, Hypertension, Prostate Disorder, Thyroid Disorder Additional Past Medical History / Comment(s): kidney cancer, hx anemia, constipation, hypothyroidism, prostate cancer w/ radation tx. 2018 History of Any Multi-Drug Resistant Organisms: None Reported Additional Past Surgical History / Comment(s): left nephrectomy, vasectomy Past Anesthesia/Blood Transfusion Reactions: No Reported Reaction Smoking Status: Former smoker - Past Family History Father Family Medical History: Coronary Artery Disease (CAD), Diabetes Mellitus Mother Family Medical History: Hypertension Brother(s) Family Medical History: Diabetes Mellitus Sister(s) Family Medical History: Cancer Medications and Allergies Home Medications Medication Instructions Recorded Confirmed Type atenoloL [Tenormin] 50 mg PO PC-SUPPER 07/29/14 05/09/23 History Aspirin [Adult Low Dose Aspirin EC] 81 mg PO DAILY 08/04/15 05/05/23 History Ubidecarenone [Co Q-10] 100 mg PO DAILY 08/04/15 05/05/23 History Atorvastatin Calcium [Lipitor] 40 mg PO PC-SUPPER 05/05/23 05/09/23 History Cyanocobalamin [Vitamin B-12] 500 mcg PO DAILY 05/05/23 05/05/23 History Levothyroxine Sodium [Synthroid] 25 mcg PO QAM 05/05/23 05/09/23 History Allergies Allergy/AdvReac Type Severity Reaction Status Date / Time No Known Allergies Allergy Verified 05/09/23 07:28 Surgical - Exam Physical exam: General: Well-developed, well-nourished HEENT: Normocephalic, sclerae nonicteric Abdomen: Nontender, nondistended, bilateral inguinal hernia left greater than right Extremities: No edema Neuro: Alert and oriented Assessment and Plan (1) Left inguinal hernia Narrative/Plan: 77-year-old male with bilateral inguinal hernia. Will proceed with laparoscopic da Susan assisted repair bilateral inguinal hernia with mesh, possible open. Risks of bleeding, infection, recurrence, bladder and bowel injury, numbness, nerve injury, conversion to an open procedure were discussed with the patient. The patient understands and wishes to proceed. Current Visit: Yes Status: Acute Code(s): K40.90 - UNIL INGUINAL HERNIA, W/O OBST OR GANGR, NOT SPCF [facility] Code(s): 074380302
[2023-05-09] MEDS ORDERED: fentaNYL (PF) 50 MCG/ML 2 ML AMP IVP ONE (07:54)
[2023-05-09] MEDS ORDERED: MIDAZOLAM 2 MG/2 ML VIAL IVP ONE (07:54)
--- NOTE | 2023-05-09 08:15 | P.ANPRN ---
Procedure Note - Anesthesia - Nerve Block Performed Bilateral Erector Spinae Single Time Out Performed: Yes Date of Procedure: 05/09/23 Procedure Start Time: 07:54 Procedure Stop Time: 08:01 Location of Patient: PreOp Indication: Acute Post-Operative Pain, Requested by Surgeon Sedation Type: Sedate with meaningful contact maintained Preparation: Sterile Prep Position: Prone Needle Types: Pajunk Needle Gauge: 21 Ultrasound used to visualize needle placement: Yes Ultrasound used to observe medication spread: Yes Injectate: 0.5% Ropivacaine (see comment for volume) (15 ml +15 ml NS +4 mg Dexamethasone) Blood Aspirated: No Pain Paresthesia on Injection Noted: No Resistance on Injection: Normal Image Stored and Saved: Yes Events: Uneventful and Well Tolerated
[2023-05-09] MEDS ORDERED: TAMSULOSIN 0.4 MG CAP.ER.24H PO ONE (08:26)
[2023-05-09] MEDS ORDERED: fentaNYL (PF) 50 MCG/ML 2 ML AMP ONE (08:54)
[2023-05-09] MEDS ORDERED: GLYCOPYRROLATE 0.2 MG/ML 2 ML VIAL ONE (08:54)
[2023-05-09] MEDS ORDERED: SUCCINYLCHOLINE CHLORIDE 200 MG/10 ML VIAL IV ONE (08:54)
[2023-05-09] MEDS ORDERED: ROCURONIUM 10 MG/ML (5 ML VIAL) IV ONE (08:54)
[2023-05-09] MEDS ORDERED: ePHEDrine 50 MG/ML 1 ML VIAL ONE (08:54)
[2023-05-09] MEDS ORDERED: ROPIVACAINE 5 MG/ML 30 ML VIAL ONE (08:54)
[2023-05-09] MEDS ORDERED: PHENYLEPHRINE-0.9% NACL SYG 1,000 MCG/10 ML SYRINGE ONE (08:54)
[2023-05-09] MEDS ORDERED: LIDOCAINE 1% INJ 10MG/ML (20 ML MDV) ONE (08:54)
[2023-05-09] MEDS ORDERED: PROPOFOL 10 MG/ML 20 ML VIAL IV ONE (08:54)
[2023-05-09] MEDS ORDERED: SODIUM CHLORIDE 0.9% (PF) 10 ML VIAL ONE (08:54)
[2023-05-09] MEDS ORDERED: DEXAMETHASONE SOD PHOSPHATE 4 MG/ML 1 ML VIAL ONE (08:54)
[2023-05-09] MEDS ORDERED: NEOSTIGMINE 1 MG/ML 10 ML VIAL ONE (08:54)
[2023-05-09] MEDS ORDERED: BUPIVACAINE (PF) 0.25% 30 ML VIAL SQ ONE (09:24)
[2023-05-09 11:13] VITALS: TEMP 97
[2023-05-09 11:43] VITALS: RESP 16
--- NOTE | 2023-05-09 11:43 | P.OP ---
Date of Procedure: 05/09/23 Procedure(s) Performed: PREOPERATIVE DIAGNOSIS: Bilateral inguinal hernia POSTOPERATIVE DIAGNOSIS: Bilateral direct inguinal hernia, abdominal adhesions PROCEDURE: Bilateral da Susan assisted repair inguinal hernia, laparoscopic lysis of adhesions SURGEON: Dr. Miner ANESTHESIA: General OPERATIVE PROCEDURE DETAILS: Patient was placed in the operating table in the supine position. The patient was placed under general anesthesia. The abdomen was prepped and draped in usual sterile fashion. A small curvilinear supraumbilical incision was made. The fascia was retracted anteriorly with Garnavillo forceps. The Veress needle was inserted. The saline drop test was normal. Insufflation took place to 15 mmHg. An 8 mm trocar was placed into the peritoneal cavity. 2 additional 8 mm trochars were placed in the right upper quadrant and left upper quadrant under visualization. The robotic arms were then brought in and docked into place. The fenestrated bipolar was used in the left arm and the laparoscopic ehsan was utilized in the right arm. A 30 8 mm scope was used in the up position. The peritoneal cavity was inspected. The patient had adhesions to the previous nephrectomy scar in the left paramedian location. These adhesions containing both omentum and small bowel. These were lysed sharply. No serosal tears seen. The hernia sites were then inspected. The patient had a moderate sized left direct inguinal hernia and a small sized right direct inguinal hernia. A incision was created on the peritoneum across the lower abdomen superior to the bladder. The preperitoneal dissection took place bilaterally at that time. The direct hernia on the left-hand side was reduced using blunt dissection. Billy's ligament and the pubic symphysis were well-visualized. Dissection on the right-hand side of the direct hernia sac then took place without difficulty as well. Once we had full dissection in both sacs fully reduced 2 separate 15 x 10 mm Progrip mesh were placed within the abdomen crossing one another in the midline. These were then sutured to the Billy's ligament across the pubic symphysis to the opposite side using a running 30 absorbable V lock suture. The same stitch was then brought to the midline and the mesh was sutured to the abdominal wall in the midline super iorly. This covered all hernia spaces nicely. The peritoneal defect was then closed bilaterally using a absorbable 2-0 VLok suture. The hernia sacs were incorporated into the peritoneal closure to help prevent future recurrence. The pneumoperitoneum was then evacuated. The skin of all 3 sites was closed using a 4-0 Monocryl stitch. Skin glue was then applied. TYPE OF MESH USED: Progrip 15 x 10 LOCATION OF MESH: Preperitoneal/sub-lay FIXATION: Absorbable 30V lock PREOPERATIVE DISCUSSION ON SMOKING CESSASTION: Yes PREOPERATIVE DISCUSSION ON MORBID OBESITY: Yes PREOPERATIVE DISCUSSION ON APPROPRIATE USE OF NARCOTIC USE: Yes PREOPERATIVE EDUCATION: Multi Modal, Smoking Cessation and Weight Loss with BMI over 35. DISPOSITION: Stable to recovery room
[2023-05-09] MEDS ORDERED: ACETAMINOPHEN TAB 325 MG TAB PO SCH (12:00)
[2023-05-09] MEDS ORDERED: ONDANSETRON 4 MG/2 ML VIAL ONE (12:53)
[2023-05-09] MEDS ORDERED: ONDANSETRON 4 MG/2 ML VIAL IVP ONE (12:54)
[2023-05-09 13:11] VITALS: BP 137/77; PULSE 60
[2023-05-09] MEDS ORDERED: IBUPROFEN 600 MG TAB PO SCH (15:00)
== END 2023-05-09 13:45 | disposition home or self-care (01) ==
LOC: OR 06:38
PROVIDERS: ATTEND Surgery
DX: K40.20 Bilateral inguinal hernia, without obstruction or gangrene, not specified as recurrent (principal); K66.0 Peritoneal adhesions (postprocedural) (postinfection); I10 Essential (primary) hypertension; E78.5 Hyperlipidemia, unspecified; N42.9 Disorder of prostate, unspecified; Z85.528 Personal history of other malignant neoplasm of kidney; D64.9 Anemia, unspecified; K59.00 Constipation, unspecified; E03.9 Hypothyroidism, unspecified; Z85.46 Personal history of malignant neoplasm of prostate; Z90.5 Acquired absence of kidney; Z87.891 Personal history of nicotine dependence; Z83.3 Family history of diabetes mellitus; Z82.49 Family history of ischemic heart disease and other diseases of the circulatory system; Z79.82 Long term (current) use of aspirin; Z79.890 Hormone replacement therapy; Z79.899 Other long term (current) drug therapy
CPT/HCPCS: 49650; S2900; 64999

== ENCOUNTER 2023-05-27 17:30 | Inpatient (IN) | payer MEDICARE ==
--- NOTE | 2023-05-27 18:21 | ED ---
General Adult HPI - General Chief complaint: Abdominal Pain Stated complaint: ABD PAIN, PO SURGERY Time Seen by Provider: 05/27/23 17:50 Source: patient, family, RN notes reviewed Mode of arrival: ambulatory Limitations: no limitations - History of Present Illness Initial comments: Patient is a pleasant 77-year-old male presenting to the emergency department with concerns for abdominal problems. Patient was exposed to COVID-19 infection on the . Patient has been having cough and congestion since that time. Patient believes it started causing some abdominal discomfort. Patient has had nausea and vomiting since last night, no vomiting today. Patient has had 2 episodes of diarrhea today. Patient has some abdominal discomfort that is waxin g and waning. Patient did see his doctor earlier today who recommended he come for CT scan. Patient tested positive for COVID-19 infection earlier today - Related Data Home Medications Medication Instructions Recorded Confirmed atenoloL [Tenormin] 50 mg PO PC-SUPPER 07/29/14 05/09/23 Aspirin [Adult Low Dose Aspirin EC] 81 mg PO DAILY 08/04/15 05/05/23 Ubidecarenone [Co Q-10] 100 mg PO DAILY 08/04/15 05/05/23 Atorvastatin Calcium [Lipitor] 40 mg PO PC-SUPPER 05/05/23 05/09/23 Cyanocobalamin [Vitamin B-12] 500 mcg PO DAILY 05/05/23 05/05/23 Levothyroxine Sodium [Synthroid] 25 mcg PO QAM 05/05/23 05/09/23 Previous Rx's Medication Instructions Recorded oxyCODONE HCL [OxyIR] 5 mg PO Q6H PRN 3 Days #6 tab 05/09/23 Allergies Allergy/AdvReac Type Severity Reaction Status Date / Time No Known Allergies Allergy Verified 05/09/23 07:28 Review of Systems ROS Statement: Those systems with pertinent positive or pertinent negative responses have been documented in the HPI. ROS Other: All systems not noted in ROS Statement are negative. Constitutional: Denies: fever Eyes: Denies: eye pain ENT: Denies: ear pain Respiratory: Reports: as per HPI, cough Cardiovascular: Denies: chest pain Endocrine: Denies: fatigue Gastrointestinal: Reports: as per HPI, abdominal pain, nausea, vomiting, diarrhea Genitourinary: Denies: dysuria Musculoskeletal: Denies: back pain Skin: Denies: rash Neurological: Denies: weakness Past Medical History Past Medical History: Cancer, Hyperlipidemia, Hypertension Additional Past Medical History / Comment(s): kidney cancer-, hx anemia, const ipation, History of Any Multi-Drug Resistant Organisms: None Reported Past Surgical History: Hernia Repair Additional Past Surgical History / Comment(s): left nephrectomy, vasectomy, Past Anesthesia/Blood Transfusion Reactions: No Reported Reaction Past Psychological History: No Psychological Hx Reported Past Alcohol Use History: None Reported Past Drug Use History: None Reported - Past Family History Father Family Medical History: Coronary Artery Disease (CAD), Diabetes Mellitus Mother Family Medical History: Hypertension Brother(s) Family Medical History: Diabetes Mellitus Sister(s) Family Medical History: Cancer General Exam Limitations: no limitations General appearance: alert, in no apparent distress Head exam: Present: normocephalic Eye exam: Present: normal appearance Neck exam: Present: normal inspection Respiratory exam: Present: normal lung sounds bilaterally Cardiovascular Exam: Present: regular rate, normal rhythm Expanded Peripheral pulses: 2+: Posterior Tibialis (R), Posterior Tibialis (L) GI/Abdominal exam: Present: soft, tenderness (Mild diffuse tenderness), normal bowel sounds. Absent: distended, guarding, rebound, rigid, pulsatile mass Extremities exam: Present: normal inspection Neurological exam: Present: alert Psychiatric exam: Present: normal affect, normal mood Skin exam: Present: normal color Course Vital Signs 05/27/23 17:42 Temperature 98.8 F Pulse Rate 81 Respiratory 20 Rate Blood Pressure 138/81 O2 Sat by Pulse 96 Oximetry Medical Decision Making - Medical Decision Making Was pt. sent in by a medical professional or institution (, PA, TRIMMER MACHINE, urgent care, hospital, or residential...) When possible be specific @ -Patient was sent in by Dr. Saleh's office Did you speak to anyone other than the patient for history (EMS, parent, family, police, friend...)? What history was obtained from this source @ -Family is present helps provide history including recent surgical history Did you review nursing and triage notes (agree or disagree)? Why? @ -I reviewed and agree with nursing and triage notes Were old charts reviewed (outside hosp., previous admission, EMS record, old EKG, old radiological studies, urgent care reports/EKG's, residential records)? Report findings @ -Previous admission reviewed Differential Diagnosis (chest pain, altered mental status, abdominal pain women, abdominal pain men, vaginal bleeding, weakness, fever, dyspnea, syncope, headache, dizziness, GI bleed, back pain, seizure, CVA, palpatations, mental health, musculoskeletal)? @ -Differential Abdominal Pain Men: Appendicitis, cholecystitis, diverticulosis, ischemic bowel, pancreatitis, hepatitis, UTI, gastroenteritis, AAA, incarcerated hernia, bowel obstruction, constipation, inflammatory bowel, hepatitis, peptic ulcer disease, splenic infarction, perforated viscus, testicular torsion, this is not meant to be an all-inclusive list EKG interpreted by me (3pts min.). @ -As above X-rays interpreted by me (1pt min.). @ -None done CT interpreted by me (1pt min.). @ -CT scan abdomen pelvis does have concern for bowel obstruction U/S interpreted by me (1pt. min.). @ -None done What testing was considered but not performed or refused? (CT, X-rays, U/S, labs)? Why? @ -None What meds were considered but not given or refused? Why? @ -None Did you discuss the management of the patient with other professionals (professionals i.e. , PA, TRIMMER MACHINE, lab, RT, psych nurse, hospital social worker, front end drupal developer, teacher, adult parole officer, onsite case manager)? Give summary @ -Case was discussed with Dr. Cedeno and who is familiar with this patient and will admit with consult with Dr. Velazquez Was smoking cessation discussed for >3mins.? @ -No Was critical care preformed (if so, how long)? @ -No Were there social determinants of health that impacted care today? How? (Homelessness, low income, unemployed, alcoholism, drug addiction, transportation, low edu. Level, literacy, decrease access to med. care, [place] [facility], rehab)? @ -No Was there de-escalation of care discussed even if they declined (Discuss DNR or withdrawal of care, Hospice)? DNR status @ -No What co-morbidities impacted this encounter? (DM, HTN, Smoking, COPD, CAD, Cancer, CVA, ARF, Chemo, Hep., AIDS, mental health diagnosis, sleep apnea, morbid obesity)? @ -Recent postoperative care Was patient admitted / discharged? Hospital course, mention meds given and route, prescriptions, significant lab abnormalities, going to OR and other pertinent info. @ -Patient reevaluated. Patient still having some discomfort. Patient and family updated on results and plan. Patient will be admitted. Surgical consult will be placed. Admission orders written. Undiagnosed new problem with uncertain prognosis? @ -No Drug Therapy requiring intensive monitoring for toxicity (Heparin, Nitro, Insulin, Cardizem)? @ -No Were any procedures done? @ -No Diagnosis/symptom? @ -Bowel obstruction Acute, or Chronic, or Acute on Chronic? @ -Acute Uncomplicated (without systemic symptoms) or Complicated (systemic symptoms)? @ -Default Side effects of treatment? @ -No Exacerbation, Progression, or Severe Exacerbation? @ -No Poses a threat to life or bodily function? How? (Chest pain, USA, ND, pneumonia, PE, COPD, DKA, ARF, appy, cholecystitis, CVA, Diverticulitis, Homicidal, Suicidal, threat to staff... and all critical care pts) @ -No - Lab Data Result diagrams: 05/27/23 18:46 05/27/23 18:46 Lab Results 05/27/23 05/27/23 05/27/23 Range/Units 18:46 18:46 18:46 WBC 8.3 (3.8-10.6) k/uL RBC 4.55 (4.30-5.90) m/uL Hgb 13.7 (13.0-17.5) gm/dL Hct 41.4 (39.0-53.0) % MCV 91.0 (80.0-100.0) fL MCH 30.1 (25.0-35.0) pg MCHC 33.0 (31.0-37.0) g/dL RDW 12.5 (11.5-15.5) % Plt Count 236 (150-450) k/uL MPV 7.6 Neutrophils % 80 % Lymphocytes % 13 % Monocytes % 6 % Eosinophils % 1 % Basophils % 0 % Neutrophils # 6.6 (1.3-7.7) k/uL Lymphocytes # 1.0 (1.0-4.8) k/uL Monocytes # 0.5 (0-1.0) k/uL Eosinophils # 0.1 (0-0.7) k/uL Basophils # 0.0 (0-0.2) k/uL PT 10.7 (10.0-12.5) sec INR 1.0 (<1.2) APTT 19.3 L (22.0-30.0) sec Sodium 138 (137-145) mmol/L Potassium 4.1 (3.5-5.1) mmol/L Chloride 105 (98-107) mmol/L Carbon Dioxide 28 (22-30) mmol/L Anion Gap 5 mmol/L BUN 22 H (9-20) mg/dL Creatinine 1.07 (0.66-1.25) mg/dL Est GFR (CKD-EPI)AfAm 78 (>60 ml/min/1.73 sqM) Est GFR (CKD-EPI)NonAf 68 (>60 ml/min/1.73 sqM) Glucose 108 H (74-99) mg/dL Calcium 8.9 (8.4-10.2) mg/dL Total Bilirubin 0.9 (0.2-1.3) mg/dL AST 24 (17-59) U/L ALT 19 (4-49) U/L Alkaline Phosphatase 95 (38-126) U/L Total Protein 6.7 (6.3-8.2) g/dL Albumin 4.0 (3.5-5.0) g/dL Amylase 65 (30-110) U/L Lipase 147 (23-300) U/L Disposition Clinical Impression: Bowel obstruction Disposition: ADMITTED IP TO THIS HOSP Is patient prescribed a controlled substance at d/c from ED?: No Referrals: Wayne Saleh MD [Primary Care Provider] - 1-2 days Time of Disposition: 21:41
[2023-05-27] MEDS: SODIUM CHLORIDE 0.9% 1,000 ML IV STA (18:38)
[2023-05-27] MEDS: FAMOTIDINE 20 MG/2 ML VIAL IV STA (18:38)
[2023-05-27] MEDS: ONDANSETRON 4 MG/2 ML VIAL IVP STA (18:38)
[2023-05-27] MEDS: DICYCLOMINE 10 MG/ML 2 ML AMP IM STA (18:38)
[2023-05-27 19:11] LABS: Basophils % (A) 0 %; Eosinophils # (A) 0.1 k/uL (0-0.7); Eosinophils % (A) 1 %; HCT 41.4 % (39.0-53.0); HGB 13.7 gm/dL (13.0-17.5); Lymphocytes % (A) 13 %; MCH 30.1 pg (25.0-35.0); Mean Platelet Volume 7.6; Monocytes # (A) 0.5 k/uL (0-1.0); Monocytes % (A) 6 %; Neutrophils # (A) 6.6 k/uL (1.3-7.7); Neutrophils % (A) 80 %; Platelet Count 236 k/uL (150-450); RBC 4.55 m/uL (4.30-5.90); RDW 12.5 % (11.5-15.5); WBC 8.3 k/uL (3.8-10.6)
[2023-05-27 19:29] LABS: Chloride 105 mmol/L (98-107)
[2023-05-27 19:30] LABS: ALT 19 U/L (4-49); AST 24 U/L (17-59); African American GFR (CKD) 78 (>60 ml/min/1.73 sqM); Alkaline Phosphatase 95 U/L (38-126); Amylase 65 U/L (30-110); Anion Gap 5 mmol/L; Blood Urea Nitrogen 22 mg/dL (9-20); Calcium 8.9 mg/dL (8.4-10.2); Carbon Dioxide 28 mmol/L (22-30); Glucose 108 mg/dL (74-99); Lipase 147 U/L (23-300); Non-African American GFR(CKD) 68 (>60 ml/min/1.73 sqM); Sodium 138 mmol/L (137-145); Total Bilirubin 0.9 mg/dL (0.2-1.3); Total Protein 6.7 g/dL (6.3-8.2)
[2023-05-27 19:45] LABS: Potassium 4.1 mmol/L (3.5-5.1)
[2023-05-27 19:49] LABS: Prothrombin Time 10.7 sec (10.0-12.5)
[2023-05-27 20:23] LABS: Partial Thromboplastin Time 19.3 sec (22.0-30.0)
--- NOTE | 2023-05-27 20:28 | CT ---
EXAMINATION TYPE: CT abdomen pelvis wo con DATE OF EXAM: 05/27/2023 COMPARISON: 09/03/2018 HISTORY: 77-year-old male sharp abdominal pain. Hx of recent hernia repair CT DLP: 583 mGycm. Automated exposure control for dose reduction was used. TECHNIQUE: Contiguous axial scanning of the abdomen and pelvis without IV contrast. Coronal and sagit devika reconstructions performed. FINDINGS: Heart upper limits of normal in size of pericardial effusion. Lung bases clear without pleural effusi on. Noncontrast appearance of the liver, gallbladder, right kidney, right adrenal gland, spleen, and panc reas show no gross abnormality. Similar diffuse thickening of the left adrenal gland up to 1.1 cm thi ck. Status post left nephrectomy. There are dilated, fluid-filled small bowel loops measuring up to 3.8 cm transition point possibly i n the left mid abdomen, coronal image 31. Distal small bowel as well as the colon appears largely col lapsed. There is left-sided colonic diverticulosis especially in the sigmoid colon but no pericolic i nflammatory change seen. There is infraumbilical ventral abdominal wall mesh repair that extends to the bilateral inguinal reg ions as well. However, there appears to be defect in the left inguinal region through which some fat and ascites fl uid extends measuring 3.4 x 2.8 cm. Mild to moderate atherosclerotic calcifications infrarenal abdominal aorta and common iliac arteries. Bladder partially distended. Prostate gland measures 4.8 cm wide. Mild pelvic ascites. Scattered mild mesenteric edema. Bones: Mild spondylotic changes throughout the visualized lower thoracic and lumbar spine. IMPRESSION 1. Status post infraumbilical ventral abdominal wall wall mesh repair which extends down to the bila teral inguinal regions as well. There is a small defect at the left inguinal region through which delfina e fat and ascites fluid extends (hernia sac measuring 3.4 x 2.8 cm). 2. ADDITIONAL FINDINGS SUGGESTING HIGH-GRADE SMALL BOWEL OBSTRUCTION. TRANSITION POINT LIKELY LEFT M IDABDOMEN, CORONAL IMAGE 31. FLUID-FILLED DILATED SMALL BOWEL LOOPS MEASURE UP TO 3.8 CM. DISTAL SMAL L BOWEL AND COLON ARE COLLAPSED. 3. Reactive mild pelvic free fluid and scattered mild mesenteric edema. 4. Left-sided colonic diverticulosis especially in the sigmoid colon without evidence for acute dive rticulitis.
[2023-05-27] MEDS ORDERED: ONDANSETRON 4 MG/2 ML VIAL IVP PRN (21:41)
[2023-05-27] MEDS ORDERED: HYDROmorphone 0.5 MG/0.5 ML SYRINGE IVP PRN (21:41)
[2023-05-27] MEDS ORDERED: NALOXONE 0.4 MG/ML 1 ML VIAL IV PRN (21:41)
[2023-05-27] MEDS ORDERED: HYDROmorphone 1 MG/ML 1 ML SYRINGE IVP PRN (21:41)
[2023-05-27] MEDS: MORPHINE SULFATE 4 MG/ML SYRINGE IVP STA (22:05)
[2023-05-27] MEDS: SODIUM CHLORIDE 0.9% 1,000 ML IV SCH (22:19)
[2023-05-28] MEDS: PANTOPRAZOLE 40 MG/10 ML VIAL IV SCH (10:06)
--- NOTE | 2023-05-28 12:20 | P.GSCN ---
History of Present Illness Consult date: 05/28/23 History of present illness: CHIEF COMPLAINT: Abdominal pain HISTORY OF PRESENT ILLNESS: This is a 77-year-old male who presented to the hospital with complaints of abdominal pain that started 2 days ago. He did have nausea and vomiting. He had 2 episodes of diarrhea yesterday and since then has had no further bowel movements or flatus. He reports on Friday the pain was very severe and sharp. He rated the pain a 8 out of 10. Pain is calm down to a 5 out of 10. He reports decreased appetite. Prior to this pain he had been dealing with COVID 12 days ago. With a cough. He had bilateral inguinal hernia repair and lysis of adhesions on May 09, [address] Wolf. Also prior surgical history of a left nephrectomy for kidney cancer. CT scan abdomen and pelvis reported high-grade small bowel obstruction transition point likely left mid abdomen. Patient denies any cardiac history. Patient failed 2 attempts of NG tube placement. And at this point does not want an NG tube placed. Patient denies any prior history of bowel obstruction PAST MEDICAL HISTORY: See below PAST SURGICAL HISTORY: See below MEDICATIONS: See below ALLERGIES: See below SOCIAL HISTORY: No illicit drug use. REVIEW OF SYSTEMS: CONSTITUTIONAL: Denies fever or chills. HEENT: Denies blurred vision, vision changes, or eye pain. Denies hemoptysis CARDIOVASCULAR: Denies chest pain or pressure. RESPIRATORY: No shortness of breath. GASTROINTESTINAL: See HPI for pertinent findings HEMATOLOGIC: Denies bleeding disorders. GENITOURINARY: Denies any blood in urine or increased urinary frequency. SKIN: Denies pruitis. Denies rash. PHYSICAL EXAM: VITAL SIGNS: Reviewed GENERAL: Well-developed in no acute distress. HEENT: No sclera icterus. Extraocular movements grossly intact. Moist buccal mucosa. Head is atraumatic, normocephalic. No nasal drainage. ABDOMEN: Soft. Nondistended. Minimal tenderness across the mid abdomen NEUROLOGIC: Alert and oriented. Cranial nerves II through XII grossly intact. LABORATORY DATA: WBC 8.3 Hgb 13.7 platelets 236 INR 1.0 Na 138 K 4.1 Cr 1.07 LFTs and Lipase normal IMAGING: Status post infraumbilical ventral abdominal wall mesh repair there is a small defect of the left inguinal region through which some fat ascites fluid extends. Additional finding suggest high-grade small bowel obstruction transition point likely mid abdomen. Left-sided colonic diverticulosis in the sigmoid colon. no acute diverticulitis. ASSESSMENT: 1. High-grade small bowel obstruction 2. Prior abdominal surgeries PLAN: -Keep patient n.p.o. -Encourage patient to ambulate -Continue IV fluids -Continue supportive care -Unsuccessful attempts of NG tube placement -Further recommendations forthcoming per surgeon Physician [employer] Coach note has been reviewed by physician. Signing provider agrees with the documented findings, assessment, and plan of care. I have personally seen and examined the patient, reviewed the INSPECTOR FABRIC /PAs history, exam and MDM and agree with the assessment and plan as written. Based on total visit time, I have performed more than 50% of the visit. As above: Patient with acute onset abdominal pain 2 days ago. Had episodes of nausea vomiting and some diarrhea. Abdominal CAT scan reviewed. Patient has evidence of small bowel obstruction with likely transition point left mid abdomen at his previous nephrectomy scar site. The patient had significant adhesions between the small bowel and the abdominal wall in that area when we performed his surgery 3 weeks ago. That appears to be the site of recurrent adhesions and likely bowel obstruction. Changes in the pelvis noted and I do not suspect or visualize any recurrent hernia. He does have a cord lipoma on the left that does not appear to be emanating from the internal inguinal ring. There is a seroma at the previous hernia site. There is no palpable hernia on exam. Will continue bowel rest. Unfortunately nasogastric tube unable to be placed last night. May leave NG tube out. Repeat abdominal films tomorrow. Past Medical History Past Medical History: Cancer, Hyperlipidemia, Hypertension Additional Past Medical History / Comment(s): kidney cancer-, hx anemia, cons tipation, History of Any Multi-Drug Resistant Organisms: None Reported Past Surgical History: Hernia Repair Additional Past Surgical History / Comment(s): left nephrectomy, vasectomy, Past Anesthesia/Blood Transfusion Reactions: No Reported Reaction Past Psychological History: No Psychological Hx Reported Smoking Status: Former smoker Past Alcohol Use History: None Reported Additional Past Alcohol Use History / Comment(s): quit smoking , smoked for about 20 yrs- < 1 PPD Past Drug Use History: None Reported - Past Family History Father Family Medical History: Coronary Artery Disease (CAD), Diabetes Mellitus Mother Family Medical History: Hypertension Brother(s) Family Medical History: Diabetes Mellitus Sister(s) Family Medical History: Cancer Medications and Allergies Home Medications Medication Instructions Recorded Confirmed Type atenoloL [Tenormin] 50 mg PO DAILY 07/29/14 05/27/23 History Aspirin [Adult Low Dose Aspirin EC] 81 mg PO DAILY 08/04/15 05/27/23 History Ubidecarenone [Co Q-10] 100 mg PO DAILY 08/04/15 05/27/23 History Atorvastatin Calcium [Lipitor] 40 mg PO DAILY 05/05/23 05/27/23 History Cyanocobalamin [Vitamin B-12] 500 mcg PO DAILY 05/05/23 05/27/23 History Levothyroxine Sodium [Synthroid] 25 mcg PO DAILY 05/05/23 05/27/23 History Allergies Allergy/AdvReac Type Severity Reaction Status Date / Time No Known Allergies Allergy Verified 05/27/23 22:00 Surgical - Exam Vital Signs Temp Pulse Resp BP Pulse Ox 98.8 F 81 20 138/81 96 05/27/23 17:42 05/27/23 17:42 05/27/23 17:42 05/27/23 17:42 05/27/23 17:42 Results - Labs 05/27/23 18:46 05/27/23 18:46 Abnormal Lab Results - Last 24 Hours (Table) 05/27/23 05/27/23 Range/Units 18:46 18:46 APTT 19.3 L (22.0-30.0) sec BUN 22 H (9-20) mg/dL Glucose 108 H (74-99) mg/dL Diabetes panel 05/27/23 Range/Units 18:46 Sodium 138 (137-145) mmol/L Potassium 4.1 (3.5-5.1) mmol/L Chloride 105 (98-107) mmol/L Carbon Dioxide 28 (22-30) mmol/L BUN 22 H (9-20) mg/dL Creatinine 1.07 (0.66-1.25) mg/dL Glucose 108 H (74-99) mg/dL Calcium 8.9 (8.4-10.2) mg/dL AST 24 (17-59) U/L ALT 19 (4-49) U/L Alkaline Phosphatase 95 (38-126) U/L Total Protein 6.7 (6.3-8.2) g/dL Albumin 4.0 (3.5-5.0) g/dL Calcium panel 05/27/23 Range/Units 18:46 Calcium 8.9 (8.4-10.2) mg/dL Albumin 4.0 (3.5-5.0) g/dL Pituitary panel 05/27/23 Range/Units 18:46 Sodium 138 (137-145) mmol/L Potassium 4.1 (3.5-5.1) mmol/L Chloride 105 (98-107) mmol/L Carbon Dioxide 28 (22-30) mmol/L BUN 22 H (9-20) mg/dL Creatinine 1.07 (0.66-1.25) mg/dL Glucose 108 H (74-99) mg/dL Calcium 8.9 (8.4-10.2) mg/dL Adrenal panel 05/27/23 Range/Units 18:46 Sodium 138 (137-145) mmol/L Potassium 4.1 (3.5-5.1) mmol/L Chloride 105 (98-107) mmol/L Carbon Dioxide 28 (22-30) mmol/L BUN 22 H (9-20) mg/dL Creatinine 1.07 (0.66-1.25) mg/dL Glucose 108 H (74-99) mg/dL Calcium 8.9 (8.4-10.2) mg/dL Total Bilirubin 0.9 (0.2-1.3) mg/dL AST 24 (17-59) U/L ALT 19 (4-49) U/L Alkaline Phosphatase 95 (38-126) U/L Total Protein 6.7 (6.3-8.2) g/dL Albumin 4.0 (3.5-5.0) g/dL
[2023-05-28 12:58] LABS: Basophils % (A) 0 %; Eosinophils # (A) 0.1 k/uL (0-0.7); Eosinophils % (A) 2 %; HCT 35.5 % (39.0-53.0); HGB 11.9 gm/dL (13.0-17.5); Lymphocytes # (A) 1.1 k/uL (1.0-4.8); Lymphocytes % (A) 19 %; MCHC 33.4 g/dL (31.0-37.0); MCV 92.6 fL (80.0-100.0); Mean Platelet Volume 7.6; Monocytes # (A) 0.4 k/uL (0-1.0); Monocytes % (A) 7 %; Neutrophils # (A) 4.3 k/uL (1.3-7.7); Neutrophils % (A) 71 %; Platelet Count 213 k/uL (150-450); RBC 3.83 m/uL (4.30-5.90); RDW 12.6 % (11.5-15.5)
[2023-05-28 13:16] LABS: ALT 14 U/L (4-49); AST 18 U/L (17-59); African American GFR (CKD) 75 (>60 ml/min/1.73 sqM); Albumin 3.1 g/dL (3.5-5.0); Alkaline Phosphatase 85 U/L (38-126); Anion Gap 4 mmol/L; Blood Urea Nitrogen 17 mg/dL (9-20); Calcium 7.9 mg/dL (8.4-10.2); Carbon Dioxide 27 mmol/L (22-30); Chloride 109 mmol/L (98-107); Glucose 97 mg/dL (74-99); Non-African American GFR(CKD) 65 (>60 ml/min/1.73 sqM); Potassium 4.9 mmol/L (3.5-5.1); Sodium 140 mmol/L (137-145); Total Bilirubin 0.7 mg/dL (0.2-1.3); Total Protein 5.5 g/dL (6.3-8.2)
--- NOTE | 2023-05-28 23:16 | PN ---
PROGRESS NOTE CHIEF COMPLAINT: Bowel obstruction. HISTORY OF PRESENT ILLNESS: This gentleman is doing well and he may have relieved this obstruction. Earlier today he passed a large amount of gas in several different occasions and then some stool. He stated the stool was black, but he had been taking some Pepto-Bismol. PHYSICAL EXAMINATION: ABDOMEN: His abdomen is much flatter and nontender. Bowel sounds are present. IMPRESSION: Spontaneous relief of small bowel obstruction. PLAN: He will probably have his diet and activity increased tomorrow by surgery. MMODL / IJN: [id number] /
--- NOTE | 2023-05-28 23:37 | CONS ---
CONSULTATION CHIEF COMPLAINT: Abdominal pain and distention. HISTORY OF PRESENT ILLNESS: Another admission for this 77-year-old white male. He had a history of renal cell carcinoma without recurrence. He recently underwent laparoscopic herniorrhaphies and was doing fine until the day of admission when he came to the office with crampy abdominal pain and distention. He had an x-ray that looked like small bowel obstruction or ileus. He has had no fever, no chills, hematemesis, melena, hematochezia, jaundice, diarrhea, family urinary issues, etc. PAST MEDICAL HISTORY: Otherwise unremarkable. FAMILY HISTORY: Otherwise unremarkable. PERSONAL AND SOCIAL HISTORY: Otherwise unremarkable. PHYSICAL EXAMINATION: VITAL SIGNS: Normal. He had no fever. HEAD, EARS, EYES, NOSE, MOUTH AND THROAT: Normal. There is no scleral icterus. LUNGS: The chest is clear. CARDIOVASCULAR: The cardiac exam is normal. ABDOMEN: The abdomen was slightly distended and somewhat firm. He did have tenderness in various areas of the abdomen and bowel sounds were diminished. A rectal exam was not performed. He had had a bowel movement early in the day, but was not passing flatus. EXTREMITIES: Normal. NEUROLOGIC: Intact. HOSPITAL DIAGNOSIS: 1. Possible small-bowel obstruction or ileus. 2. History of renal cell carcinoma. PLAN: 1. Bed rest. 2. IV fluids. 3. N.p.o. 4. Analgesics. 5. Refer to his surgeon. MMHARRISON / ARVINN: [id number] /
--- NOTE | 2023-05-29 08:15 | XR ---
EXAMINATION TYPE: XR abdomen 2V DATE OF EXAM: 05/29/2023 CLINICAL DATA: 77-year-old male follow-up small bowel obstruction, [facility] COMPARISON: CT 05/27/2023 FINDINGS: Multiple dilated small bowel loops with air-fluid levels. Dilatation up to 5.5 cm versus 3. 8 cm, previously. Some surgical material left paramedian mid abdomen likely relates to patient's prev ious left nephrectomy. No evidence for free intraperitoneal air. Small amount of scattered colonic air on the right side of the abdomen. IMPRESSION: Ongoing multiple dilated small bowel loops with air-fluid levels. Small bowel dilatation up to 5.5 cm versus 3.[address]
[2023-05-29 08:31] LABS: Basophils # (A) 0.03 X 10*3/uL (0.00-0.10); Basophils % (A) 0.5 %; Eosinophils # (A) 0.25 X 10*3/uL (0.04-0.35); Eosinophils % (A) 4.2 %; HCT 35.4 % (39.6-50.0); HGB 11.6 g/dL (13.0-17.0); Lymphocytes # (A) 1.28 X 10*3/uL (0.90-5.00); Lymphocytes % (A) 21.4 %; MCH 30.2 pg (27.0-32.0); MCHC 32.8 g/dL (32.0-37.0); MCV 92.2 FL (80.0-97.0); Mean Platelet Volume 9.4 FL (9.5-12.2); Monocytes # (A) 0.59 X 10*3/uL (0.20-1.00); Monocytes % (A) 9.9 %; NRBC Per 100 WBC 0 X 10*3/uL (0.00-0.01); Neutrophils # (A) 3.81 X 10*3/uL (1.80-7.70); Neutrophils % (A) 63.8 %; Platelet Count 207 X 10*3/uL (140-440); RBC 3.84 X 10*6/uL (4.40-5.60); RDW 12.6 % (11.5-14.5); WBC 5.97 X 10*3/uL (4.50-10.00)
[2023-05-29 08:51] LABS: BUN/Creat Ratio 11.91 Ratio (12.00-20.00); Blood Urea Nitrogen 13.1 mg/dL (9.0-27.0); Calcium 8.2 mg/dL (8.7-10.3); Carbon Dioxide 23.1 mmol/L (21.6-31.8); Chloride 105 mmol/L (96-109); Glucose 91 mg/dL (70-110); Potassium 3.9 mmol/L (3.5-5.5); Sodium 141 mmol/L (135-145)
--- NOTE | 2023-05-29 12:36 | P.PN ---
Subjective Progress Note Date: 05/29/23 CHIEF COMPLAINT: Small bowel obstruction HISTORY OF PRESENT ILLNESS: Patient reports that he is feeling better today. Pain is more of a discomfort across the mid abdomen. He is having flatus. And liquidy black stools. He was taking Pepto-Bismol at home. Denies any nausea or vomiting. Afebrile. WBC 5.97 Hgb 11.6 platelets 207 sodium is 141 potassium 3.9 creatinine 1.1 abdominal x-ray reports ongoing multiple dilated small bowel loops with air-fluid levels. Small bowel dilatation up to 5.5 cm versus 3.[address] PHYSICAL EXAM: VITAL SIGNS: Reviewed. GENERAL: Well-developed in no acute distress. ABDOMEN: Soft. Nondistended. Mild discomfort across the mid abdomen NEUROLOGIC: Alert and oriented. Cranial nerves II through XII grossly intact. ASSESSMENT: 1. Small bowel obstruction with transition point left mid abdomen at his previous nephrectomy scar site PLAN: -Further recommendations forthcoming per surgeon -Keep patient n.p.o. -Continue IV fluids -Encourage patient to ambulate -Continue supportive care Physician Documentum Consultant note has been reviewed by physician. Signing provider agrees with the documented findings, assessment, and plan of care. I have personally seen and examined the patient, reviewed the JUVENILE OFFICER /PAs history, exam and MDM and agree with the assessment and plan as written. Based on total visit time, I have performed more than 50% of the visit. As above: Patient says he feels better. He has had some flatus and small bowel movements. X-ray still shows small bowel dilation. Will repeat abdominal films tomorrow. Keep n.p.o. for now. Objective - Vital Signs Vital signs: Vital Signs Temp 97.5 F L 05/29/23 07:00 Pulse 78 05/29/23 07:00 Resp 15 05/29/23 07:00 BP 148/69 05/29/23 02:35 Pulse Ox 98 05/29/23 07:00 FiO2 Intake & Output 05/28/23 05/29/23 05/29/23 18:59 06:59 18:59 Other: Voiding Method Toilet # Voids 1 1 - Labs CBC & Chem 7: 05/29/23 05:22 05/29/23 05:22 Labs: Abnormal Lab Results - Last 24 Hours (Table) 05/28/23 05/28/23 05/29/23 Range/Units 12:46 12:46 05:22 RBC 3.83 L 3.84 L (4.30-5.90) m/uL Hgb 11.9 L 11.6 L (13.0-17.5) gm/dL Hct 35.5 L 35.4 L (39.0-53.0) % MPV 9.4 L (9.5-12.2) FL Chloride 109 H (98-107) mmol/L Anion Gap (4.00-12.00) mmol/L BUN/Creatinine Ratio (12.00-20.00) Ratio Calcium 7.9 L (8.4-10.2) mg/dL Total Protein 5.5 L (6.3-8.2) g/dL Albumin 3.1 L (3.5-5.0) g/dL 05/29/23 Range/Units 05:22 RBC (4.30-5.90) m/uL Hgb (13.0-17.5) gm/dL Hct (39.0-53.0) % MPV (9.5-12.2) FL Chloride (98-107) mmol/L Anion Gap 12.90 H (4.00-12.00) mmol/L BUN/Creatinine Ratio 11.91 L (12.00-20.00) Ratio Calcium 8.2 L (8.4-10.2) mg/dL Total Protein (6.3-8.2) g/dL Albumin (3.5-5.0) g/dL
--- NOTE | 2023-05-30 08:29 | XR ---
EXAMINATION TYPE: XR abdomen 2V DATE OF EXAM: 05/30/2023 CLINICAL DATA: 77-year-old male small bowel obstruction follow-up, [facility] COMPARISON: 05/29/2023 FINDINGS: Lung bases are clear. Evidence for free intraperitoneal air. Dilated small bowel loops with air-fluid levels are redemonstrated. Loops are not dilated up to 5.2 c m versus 5.5 cm, previously. There may be slight increasing air within the right side of the colon. IMPRESSION: Ongoing small bowel obstruction with small bowel loops dilated up to 5.2 cm now versus 5.5 cm, previo usly.
--- NOTE | 2023-05-30 13:29 | P.PN ---
Subjective Progress Note Date: 05/30/23 CHIEF COMPLAINT: Small bowel obstruction HISTORY OF PRESENT ILLNESS: Patient continues to have a good amount of flatus and passing small pieces of stool. He reports no abdominal pain some minimal abdominal pressure. Denies any nausea or vomiting. Has been up and ambulating. Afebrile. Abdominal x-ray reports ongoing small bowel obstruction with small bowel loops dilated up to 5.2 cm versus 5.5 cm PHYSICAL EXAM: VITAL SIGNS: Reviewed. GENERAL: Well-developed in no acute distress. ABDOMEN: Soft. Nondistended. Nontender NEUROLOGIC: Alert and oriented. Cranial nerves II through XII grossly intact. ASSESSMENT: 1. Small bowel obstruction with transition point left mid abdomen at his previo us nephrectomy scar site PLAN: -Keep patient n.p.o. except for ice chips and popsicles -Continue IV fluids -Encourage patient to ambulate -Continue supportive care Physician Net Sorter note has been reviewed by physician. Signing provider agrees with the documented findings, assessment, and plan of care. Objective - Vital Signs Vital signs: Vital Signs Temp 97.6 F 05/30/23 08:00 Pulse 77 05/30/23 08:00 Resp 20 05/30/23 08:00 BP 138/64 05/30/23 08:00 Pulse Ox 95 05/30/23 08:00 FiO2 Intake & Output 05/29/23 05/30/23 05/30/23 18:59 06:59 18:59 Intake Total 120 Balance 120 Intake: Oral 120 Other: Voiding Method Toilet Toilet Toilet # Voids 3 2 # Bowel Movements 1 - Labs CBC & Chem 7: 05/29/23 05:22 05/29/23 05:22
--- NOTE | 2023-05-31 02:46 | PN ---
PROGRESS NOTE DATE OF SERVICE: 05/30/2023 CHIEF COMPLAINT: Incomplete small-bowel obstruction. HISTORY OF PRESENT ILLNESS: This gentleman is feeling fine. He is passing gas. However, study still suggests that he has a partial small-bowel obstruction. PHYSICAL EXAMINATION: ABDOMEN: Soft and nontender. CHEST: Clear. IMPRESSION: Small bowel obstruction. PLAN: Continue to monitor over the weekend in hopes that his obstruction will correct itself and he will not require intervention. MMODL / IJN: [id number] /
--- NOTE | 2023-05-31 03:16 | PN ---
PROGRESS NOTE DATE OF SERVICE: 05/29/2023 CHIEF COMPLAINT: Small bowel obstruction. HISTORY OF PRESENT ILLNESS: This gentleman is doing fairly well and he has been passing some stool and gas. However, his flat and upright films suggests that he still has a bowel obstruction. PHYSICAL EXAMINATION: CHEST: Clear. CARDIAC: Normal. ABDOMEN: Very slightly distended. Bowel sounds are heard. IMPRESSION: Partial small-bowel obstruction. PLAN: He will continue to be treated conservatively with observation. It is hoped that the obstruction will completely clear without further intervention. MMODL / IJN: [id number] /
[2023-05-31 09:59] LABS: Basophils # (A) 0.01 X 10*3/uL (0.00-0.10); Basophils % (A) 0.2 %; Eosinophils # (A) 0.22 X 10*3/uL (0.04-0.35); Eosinophils % (A) 4.1 %; HCT 28.5 % (39.6-50.0); HGB 9.5 g/dL (13.0-17.0); Lymphocytes % (A) 18.6 %; MCHC 33.3 g/dL (32.0-37.0); MCV 89.9 FL (80.0-97.0); Mean Platelet Volume 9.1 FL (9.5-12.2); Monocytes # (A) 0.58 X 10*3/uL (0.20-1.00); Monocytes % (A) 10.8 %; NRBC Per 100 WBC 0 X 10*3/uL (0.00-0.01); Neutrophils # (A) 3.55 X 10*3/uL (1.80-7.70); Neutrophils % (A) 65.9 %; Platelet Count 186 X 10*3/uL (140-440); RBC 3.17 X 10*6/uL (4.40-5.60); RDW 12.4 % (11.5-14.5); WBC 5.38 X 10*3/uL (4.50-10.00)
[2023-05-31 10:28] LABS: Blood Urea Nitrogen 7.6 mg/dL (9.0-27.0); Calcium 7.6 mg/dL (8.7-10.3); Chloride 110 mmol/L (96-109); Glucose 84 mg/dL (70-110); Sodium 142 mmol/L (135-145)
--- NOTE | 2023-05-31 12:51 | PN ---
PROGRESS NOTE DATE OF SERVICE: 05/31/2023 CHIEF COMPLAINT: Partial small-bowel obstruction. HISTORY OF PRESENT ILLNESS: This gentleman is just about the same. He is still passing gas and small amounts of stool, but his studies suggest that he still has a bowel obstruction. PHYSICAL EXAMINATION: ABDOMEN: Soft and nontender. Bowel sounds are present. CHEST: Clear. CARDIAC: Normal. IMPRESSION: Partial or incomplete small-bowel obstruction. PLAN: Keep patient n.p.o. MMODL / IJN: [id number] /
--- NOTE | 2023-05-31 15:07 | P.PN ---
Subjective Progress Note Date: 05/31/23 CHIEF COMPLAINT: Small bowel obstruction HISTORY OF PRESENT ILLNESS: Patient continues to have a good amount of flatus and passing small pieces of stool. He reports no abdominal pain some minimal abdominal pressure. Denies any nausea or vomiting. Has been up and ambulating. Afebrile. Abdominal x-ray reports ongoing small bowel obstruction with small bowel loops dilated up to 5.2 cm versus 5.5 cm PHYSICAL EXAM: VITAL SIGNS: Reviewed. GENERAL: Well-developed in no acute distress. ABDOMEN: Soft. Nondistended. Nontender NEUROLOGIC: Alert and oriented. Cranial nerves II through XII grossly intact. ASSESSMENT: 1. Small bowel obstruction with transition point left mid abdomen at his previous nephrectomy scar site PLAN: -CLD started -Continue IV fluids -Encourage patient to ambulate -Continue supportive care Objective - Vital Signs Vital signs: Vital Signs Temp 97.8 F 05/31/23 14:00 Pulse 58 L 05/31/23 14:00 Resp 18 05/31/23 14:00 BP 182/83 05/31/23 14:00 Pulse Ox 96 05/31/23 14:00 FiO2 Intake & Output 05/30/23 05/31/23 05/31/23 18:59 06:59 18:59 Intake Total 90 Balance 90 Intake: Oral 90 Other: Voiding Method Toilet Toilet Toilet # Voids 1 2 - Labs CBC & Chem 7: 05/31/23 06:05 05/31/23 06:05 Labs: Abnormal Lab Results - Last 24 Hours (Table) 05/31/23 05/31/23 Range/Units 06:05 06:05 RBC 3.17 L (4.40-5.60) X 10*6/uL Hgb 9.5 L (13.0-17.0) g/dL Hct 28.5 L (39.6-50.0) % MPV 9.1 L (9.5-12.2) FL Chloride 110 H (96-109) mmol/L Carbon Dioxide 21.0 L (21.6-31.8) mmol/L BUN 7.6 L (9.0-27.0) mg/dL BUN/Creatinine Ratio 7.60 L (12.00-20.00) Ratio Calcium 7.6 L (8.7-10.3) mg/dL
[2023-05-31] MEDS: atenoloL 50 MG TAB PO SCH (19:25)
[2023-05-31] MEDS: ATORVASTATIN 40 MG TAB PO STA (21:52)
[2023-06-01] MEDS: LEVOTHYROXINE 25 MCG TAB PO SCH (06:32)
[2023-06-01] MEDS ORDERED: ATORVASTATIN 40 MG TAB PO SCH (09:00)
[2023-06-01] MEDS: CYANOCOBALAMIN 500 MCG TAB PO SCH (09:06)
[2023-06-01] MEDS: LOSARTAN 50 MG TAB PO SCH (12:29)
--- NOTE | 2023-06-01 14:38 | P.PN ---
Subjective Progress Note Date: 06/01/23 She reports developing abdominal gas distention yesterday after clear liquid diet. Family is at bedside. This is his first bowel obstruction. There is recent history of bilateral inguinal hernia repair less than 3 weeks ago. Do agree with small bowel series to identify pinpoint area of bowel obstruction. In the interim may have ice chips popsicles. Will also give Gas-X. All questions addressed. Objective - Vital Signs Vital signs: Vital Signs Temp 97.9 F 06/01/23 08:30 Pulse 61 06/01/23 08:30 Resp 16 06/01/23 08:30 BP 165/77 06/01/23 12:31 Pulse Ox 98 06/01/23 08:30 FiO2 Intake & Output 05/31/23 06/01/23 06/01/23 18:59 06:59 18:59 Intake Total 90 100 Balance 90 100 Intake: Oral 90 100 Other: Voiding Method Toilet Toilet Toilet # Voids 1 1 - Labs CBC & Chem 7: 05/31/23 06:05 05/31/23 06:05
[2023-06-01] MEDS: ATORVASTATIN 40 MG TAB PO SCH (18:05)
[2023-06-01] MEDS: atenoloL 50 MG TAB PO SCH (18:05)
[2023-06-01] MEDS: SIMETHICONE 80 MG CHEWABLE PO SCH (18:06)
[2023-06-01 21:58] VITALS: RESP 16
--- NOTE | 2023-06-02 08:24 | PN ---
PROGRESS NOTE DATE OF SERVICE: 06/01/2023 CHIEF COMPLAINT: Small bowel obstruction. HISTORY OF PRESENT ILLNESS: This gentleman is doing fairly well. He had difficulty with liquids, however. PHYSICAL EXAMINATION: GENERAL: He is slightly pale. CHEST: Clear. CARDIAC: Normal. VITAL SIGNS: Blood pressure is also elevated. IMPRESSION: 1. Small bowel obstruction. 2. Hypertension. PLAN: Resume his antihypertensives and add Cozaar. MMODL / IJN: [id number] /
[2023-06-02 11:08] LABS: Basophils # (A) 0.04 X 10*3/uL (0.00-0.10); Basophils % (A) 0.6 %; Eosinophils # (A) 0.22 X 10*3/uL (0.04-0.35); Eosinophils % (A) 3.3 %; HCT 32.4 % (39.6-50.0); HGB 11.1 g/dL (13.0-17.0); Lymphocytes # (A) 1.33 X 10*3/uL (0.90-5.00); Lymphocytes % (A) 19.8 %; MCH 30.7 pg (27.0-32.0); MCHC 34.3 g/dL (32.0-37.0); MCV 89.5 FL (80.0-97.0); Mean Platelet Volume 9.5 FL (9.5-12.2); Monocytes # (A) 0.82 X 10*3/uL (0.20-1.00); Monocytes % (A) 12.2 %; NRBC Per 100 WBC 0 X 10*3/uL (0.00-0.01); Neutrophils # (A) 4.27 X 10*3/uL (1.80-7.70); Neutrophils % (A) 63.4 %; Platelet Count 250 X 10*3/uL (140-440); RBC 3.62 X 10*6/uL (4.40-5.60); RDW 12.6 % (11.5-14.5); WBC 6.73 X 10*3/uL (4.50-10.00)
--- NOTE | 2023-06-02 11:44 | FL ---
EXAMINATION TYPE: FL small bowel follow through DATE OF EXAM: 06/02/2023 9:03 AM COMPARISON: CT abdomen pelvis most recent from 05/27/2023 INDICATION: Patient age:Male; 77 years old; Reason for study: follow up on SBO; TECHNIQUE: The procedure was explained and patient history elicited. All patient questions were ans wered prior to start of procedure. A program director substance abuse radiograph of the abdomen was also reviewed. The patient was asked to ingest liquid Gastrografin and incremental frontal abdominal radiographs were then taken until contrast was visualized in the cecum. Fluoroscopic time: 5 seconds Radiographs taken: 8 DAP: Not reported [id number] FINDINGS: The program director substance abuse abdominal radiograph demonstrates a normal bowel gas pattern without dilated loops of small or large bowel. There is no evidence of organomegaly or pneumoperitoneum. No abnormal calcifications . The visualized osseous structures are intact. Contrast is seen extending from the duodenojejunal junction into the cecum after 1 hour and 30 minute s, which is within the expected time period. The small bowel follows normal distribution and contour without any evidence of extraluminal or intraluminal irregularity. There is no displacement of thao l loops or extraluminal extravasation of contrast material. Small bowel mucosal folds are felt to be within normal limits. IMPRESSION: No evidence for small bowel obstruction or dilated loops of small bowel. Findings on prior exam on CT 05/27/2023 appear to have resolved.
[2023-06-02] MEDS: DEXAMETHASONE SOD PHOSPHATE 4 MG/ML 1 ML VIAL IV ONE (14:11)
[2023-06-02] MEDS: LACTATED RINGERS 1,000 ML IV SCH (14:12)
[2023-06-02] MEDS: ONDANSETRON 4 MG/2 ML VIAL IVP ONE (14:12)
[2023-06-02 14:39] VITALS: BP 135/70; PULSE 70; TEMP 98
--- NOTE | 2023-06-02 16:33 | P.PN ---
Subjective Progress Note Date: 06/02/23 CHIEF COMPLAINT: Small bowel obstruction HISTORY OF PRESENT ILLNESS: Patient had small bowel follow-through completed today. Report states no evidence for small bowel obstruction or dilated loops of small bowel. Findings on prior exam on CT appears to have resolved. Patient reports having bowel movements. Denies any nausea or vomiting. Reports his pain is resolved. He does report some mild bloating. Afebrile. WBC 6.73 PHYSICAL EXAM: VITAL SIGNS: Reviewed. GENERAL: Well-developed in no acute distress. ABDOMEN: Soft. Nondistended. Nontender NEUROLOGIC: Alert and oriented. Cranial nerves II through XII grossly intact. ASSESSMENT: 1. Small bowel obstruction resolved on small bowel follow-through PLAN: -Advance diet to full liquids -Continue to monitor Physician Country Manager note has been reviewed by physician. Signing provider agrees with the documented findings, assessment, and plan of care. I have personally seen and examined the patient, reviewed the COUNTING MACHINE OPERATOR /PAs history, exam and MDM and agree with the assessment and plan as written. Based on total visit time, I have performed more than 50% of the visit. As above: Patient doing well today. He had a small bowel series this morning. Small bowel series shows a no evidence of obstruction. Begin full liquid diet. May discharge if tolerates. Slowly advance diet at home. Objective - Vital Signs Vital signs: Vital Signs Temp 98.0 F 06/02/23 14:00 Pulse 70 06/02/23 14:00 Resp 16 06/02/23 14:00 BP 135/70 06/02/23 14:00 Pulse Ox 98 06/02/23 14:00 FiO2 Intake & Output 06/01/23 06/02/23 06/02/23 18:59 06:59 18:59 Intake Total 100 Balance 100 Intake: Oral 100 Other: Voiding Method Toilet Toilet Toilet # Voids 1 1 - Labs CBC & Chem 7: 06/02/23 06:30 05/31/23 06:05 Labs: Abnormal Lab Results - Last 24 Hours (Table) 06/02/23 Range/Units 06:30 RBC 3.62 L (4.40-5.60) X 10*6/uL Hgb 11.1 L (13.0-17.0) g/dL Hct 32.4 L (39.6-50.0) % Immature Gran # 0.05 H (0.00-0.04) X 10*3/uL
--- NOTE | 2023-06-02 21:25 | DS ---
DISCHARGE SUMMARY CHIEF COMPLAINT: Abdominal pain. HISTORY OF PRESENT ILLNESS AND PHYSICAL EXAMINATION: Details of this man's history and physical can be found in the initial workup. LABORATORY STUDIES: While he was in the hospital, he had laboratory studies, details of which can be found in the laboratory section of his chart. COURSE IN THE HOSPITAL: After admission, he was placed on bedrest and started on intravenous fluids and kept n.p.o. He was seen by Surgery. It was initially felt that he had a small bowel obstruction or an ileus. He slowly started to open up and began to pass gas, but only very slowly. He continued to have some crampy abdominal pain and a subsequent flat and upright film suggests that he still had obstruction. On the morning of discharge, he was taken down for further studies and Surgery felt that he could be discharged and he will go home on liquids and wait to see if he opens up any further. He will go home on his usual medications as well and to be seen in the office in several days. FINAL DIAGNOSES: 1. Small-bowel obstruction. 2. Hypertension. 3. History of renal cell carcinoma. OPERATIONS: None. CONSULTATIONS: Surgery. He is improved. MMODL / IJN: [id number] /
[2023-06-03] MEDS ORDERED: HYDROmorphone 0.5 MG/0.5 ML SYRINGE IVP PRN (07:00)
== END 2023-06-02 16:25 | disposition home or self-care (01) | DRG 388 ==
LOC: EC 17:30 → 6NMEDSUR 21:42 → OBSVTOIN 05-28 07:19
PROVIDERS: ADMIT Family Medicine; ATTEND Family Medicine
PROC: 0D9670Z Drainage of Stomach with Drainage Device, Via Natural or Artificial Opening (ICD-10-PCS; principal; 2023-05-27)
DX: K56.600 Partial intestinal obstruction, unspecified as to cause (principal); U07.1 COVID-19; E78.5 Hyperlipidemia, unspecified; I10 Essential (primary) hypertension; K59.00 Constipation, unspecified; Z90.5 Acquired absence of kidney; Z53.09 Procedure and treatment not carried out because of other contraindication; Z28.311 Partially vaccinated for COVID-19; Z85.528 Personal history of other malignant neoplasm of kidney; Z79.82 Long term (current) use of aspirin; Z79.890 Hormone replacement therapy; Z79.899 Other long term (current) drug therapy; Z82.49 Family history of ischemic heart disease and other diseases of the circulatory system; Z87.891 Personal history of nicotine dependence
CPT/HCPCS: 36415; 74019; 74176; 74250; 80048; 80053; 82150; 83690; 85025; 85610; 85730; 96361; 96372; 96374; 96375; 99285

== ENCOUNTER → 2024-01-14 | Outpatient (CLI) | payer MEDICARE ==
--- NOTE | 2024-01-14 12:56 | US ---
EXAMINATION TYPE: US kidneys/renal and bladder DATE OF EXAM: 01/14/2024 COMPARISON: CT 2023, US 2022 CLINICAL INDICATION: Male, 78 years old with history of N13.39 OTHER HYDRONEPHROSIS; Hx left nephrect [place] 10 years ago. Hydronephrosis per order. TECHNIQUE: Grayscale and color Doppler imaging of the bilateral kidneys and urinary bladder: FINDINGS: EXAM MEASUREMENTS: Right Kidney: 14.0 x 5.5 x 4.9 cm Left Kidney: Surgically absent Right Kidney: *Minimal hydronephrosis seen. Kidney appears enlarged. Renal cortical thickness and echogenicity maintained. No nephrolithiasis. Left Kidney: Surgically absent Bladder: Appears anechoic. No wall thickening or calcifications. Bilateral Jets seen: Right jet seen IMPRESSION: Mild pelvocaliectasis versus extrarenal pelvis similar to prior exam. [facility], , 01/14/2024 12:54 PM
[2024-01-14 18:47] LABS: BUN/Creat Ratio 13.42 Ratio (12.00-20.00); Blood Urea Nitrogen 16.1 mg/dL (9.0-27.0); Calcium 9.2 mg/dL (8.7-10.3); Carbon Dioxide 28.3 mmol/L (21.6-31.8); Chloride 100 mmol/L (96-109); Glucose 87 mg/dL (70-110); Potassium 5.2 mmol/L (3.5-5.5); Sodium 137 mmol/L (135-145)
== END | disposition home or self-care (01) ==
LOC: RADUSWWP 12:15
PROVIDERS: ATTEND Urology
DX: N13.39 Other hydronephrosis
CPT/HCPCS: 76770; 80048